=== PATIENT | female | born 1950 | race Caucasian/White ===

== ENCOUNTER → 2016-09-05 | Outpatient (CLI) | payer MEDICARE, OTHER ==
--- NOTE | 2016-09-09 08:55 | MM ---
Reason for exam: screening (asymptomatic). Last mammogram was performed 2 years and 7 months ago. History: Patient is postmenopausal. Family history of breast cancer in aunt. Physical Findings: A clinical breast exam by your physician is recommended on an annual basis and results should be correlated with mammographic findings. MG Screening Mammo w CAD Bilateral CC and MLO view(s) were taken. Prior study comparison: February 28, 2015, mammogram, performed at [facility]. February 15, 2014, mammogram, performed at [facility]. The breast tissue is almost entirely fat. No significant changes when compared with prior studies. ASSESSMENT: Negative, BI-RAD 1 RECOMMENDATION: Routine screening mammogram of both breasts in 1 year.
== END | disposition home or self-care (01) ==
LOC: RADMAMWWP 08-28 14:17
PROVIDERS: ATTEND Family Medicine
DX: Z12.31 Encounter for screening mammogram for malignant neoplasm of breast (principal)

== ENCOUNTER 2017-07-17 09:15 | Inpatient (IN) | payer MEDICARE, OTHER ==
[~2017-07-17 09:15] MED LIST: ACETAMINOPHEN TAB 500 MG TAB PO ONE; MELOXICAM 7.5 MG TAB PO ONE; MORPHINE SULFATE 4 MG/ML SYRINGE IV PRN; ONDANSETRON 4 MG/2 ML VIAL IVP ONE; TRANEXAMIC ACID 1,000 MG in SODIUM CHLORIDE 0.9% 50 ML IVPB ONE; ceFAZolin IN SWFI 2 GM/20 ML SYRINGE IVP ONE; fentaNYL (PF) 50 MCG/ML 2 ML AMP IV PRN
[2017-07-17] MEDS ORDERED: ROPIVACAINE 246.25 MG, EPINEPHrine 0.5 MG, KETOROLAC 30 MG, cloNIDine HCL/PF 80 MCG, WA... MISCELLANE ONE ×5 (09:21)
[2017-07-17 09:48] LABS: Glucose,Whole Blood 121 mg/dL (75-99)
[2017-07-17] MEDS: LACTATED RINGERS 1,000 ML IV SCH ×4 (09:51→22:51)
[2017-07-17] MEDS ORDERED: MIDAZOLAM 2 MG/2 ML VIAL IVP ONE (09:55)
[2017-07-17] MEDS ORDERED: PROPOFOL 10 MG/ML 20 ML VIAL IV ONE (11:10)
[2017-07-17] MEDS ORDERED: MIDAZOLAM 2 MG/2 ML VIAL ONE (11:10)
[2017-07-17] MEDS ORDERED: LIDOCAINE 1% INJ 10MG/ML (20 ML MDV) ONE (11:10)
[2017-07-17] MEDS ORDERED: TRANEXAMIC ACID 1,000 MG/10 ML VIAL ONE (11:10)
[2017-07-17] MEDS ORDERED: MORPHINE SULFATE (PF) 0.3 MG/0.3 ML SYR ONE (11:10)
[2017-07-17] MEDS ORDERED: SODIUM CHLORIDE 0.9% 100 ML BAG ONE (11:10)
[2017-07-17] MEDS ORDERED: diphenhydrAMINE 50 MG/ML 1 ML VIAL ONE (11:10)
[2017-07-17] MEDS ORDERED: fentaNYL (PF) 50 MCG/ML 2 ML AMP ONE (11:10)
[2017-07-17] MEDS ORDERED: diphenhydrAMINE 50 MG/ML 1 ML VIAL IVP PRN ×2 (11:31→15:59)
[2017-07-17] MEDS ORDERED: ONDANSETRON 4 MG/2 ML VIAL IVP PRN ×2 (11:31→13:16)
[2017-07-17] MEDS ORDERED: MORPHINE SULFATE 2 MG/ML SYRINGE IVP PRN (11:31)
[2017-07-17] MEDS ORDERED: NALOXONE 0.4 MG/ML 1 ML VIAL IV PRN ×2 (11:31→15:59)
[2017-07-17] MEDS ORDERED: LACTATED RINGERS 1,000 ML IV ONE (12:10)
[2017-07-17] MEDS ORDERED: ceFAZolin 3,000 MG in SODIUM CHLORIDE 0.9% IRRIGATIO 3,000 ML IRRIGATION ONE (12:11)
[2017-07-17] MEDS ORDERED: DIAZEPAM 5 MG TAB PO PRN (13:16)
[2017-07-17] MEDS ORDERED: BISACODYL 10 MG SUPP RECTAL PRN (13:16)
[2017-07-17] MEDS ORDERED: TEMAZEPAM 15 MG CAP PO PRN (13:16)
[2017-07-17] MEDS ORDERED: MORPHINE SULFATE 4 MG/ML SYRINGE IVP PRN ×3 (13:16)
[2017-07-17] MEDS ORDERED: MAGNESIUM HYDROXIDE 2,400 MG/10 ML CUP PO PRN (13:16)
[2017-07-17] MEDS ORDERED: NA PHOS,M-B/NA PHOS,DI-BA 133 ML ENEMA RECTAL PRN (13:16)
[2017-07-17] MEDS ORDERED: ACETAMINOPHEN TAB 325 MG TAB PO PRN (13:16)
[2017-07-17] MEDS ORDERED: ONDANSETRON 4 MG/2 ML VIAL IVP ONE (13:39)
[2017-07-17 13:43] LABS: Glucose,Whole Blood 141 mg/dL (75-99)
--- NOTE | 2017-07-17 13:57 | XR ---
EXAMINATION TYPE: XR knee limited RT DATE OF EXAM: 07/17/2017 CLINICAL HISTORY: Right knee pain and arthritis status post total knee replacement. TECHNIQUE: Portable AP and crosstable lateral views of the right knee are obtained immediately posto peratively. COMPARISON: None FINDINGS: Metallic hardware from total right knee arthroplasty is seen and appears satisfactory in a lignment and position. There is evidence of recent surgery with diffuse subcutaneous gas and soft ti ssue swelling noted. IMPRESSION: METALLIC HARDWARE FROM TOTAL RIGHT KNEE ARTHROPLASTY IS SATISFACTORY IN ALIGNMENT.
[2017-07-17] MEDS ORDERED: PHENYLEPHRINE 10 MG/ML VIAL IV ONE (14:09)
[2017-07-17] MEDS ORDERED: PROMETHAZINE INJ 25 MG/ML 1 ML VIAL IVPB ONE (14:12)
--- NOTE | 2017-07-17 14:13 | OP ---
OPERATIVE REPORT DATE OF PROCEDURE: 07/17/2017 PREOPERATIVE DIAGNOSIS: Right knee osteoarthrosis. POSTOPERATIVE DIAGNOSIS: Right knee osteoarthrosis. OPERATION: Right total knee arthroplasty. SURGEON: Oscar Edwards MD. CUSTOMER SOLUTIONS SUPERVISOR: Robbi SHARP. ANESTHESIA: Spinal with sedation. ESTIMATED BLOOD LOSS: 100 mL. TOURNIQUET TIME: 45 minutes at 250 mmHg. COMPLICATIONS: None apparent. DRAINS: None. DISPOSITION: Postanesthesia care unit. INDICATIONS: Alana is a very pleasant 66-year-old female with longstanding history of right knee pain. History and physical examination are consistent with advanced right knee osteoarthrosis. She has been through significant nonoperative management up to this point. Further treatment options were discussed and she has decided to go for the right total knee arthroplasty. The risks of procedure were discussed with her in detail. These risks include, but are not limited to risk of infection, nerve damage, bleeding, pain and risk of deep vein thrombosis which could lead to fatal pulmonary embolism. There is also risk of loosening of the implant which could require revision operation. The patient understands the risks. All of her questions were answered to her satisfaction. An appropriate informed consent was obtained. DESCRIPTION OF THE PROCEDURE: Patient identified in the preoperative holding area. Surgical sites marked by both the patient and myself. She was given 2 g of Ancef IV for prophylactic purposes. She was then transferred to the operative suite. She was placed supine on the operative table. A spinal anesthetic was then administered and dosed per the Anesthesia Department without apparent complication. The examination under anesthesia was then performed. The patient was 5 to 10 degrees shy of full extension. She had 95 degrees of flexion and the medial collateral ligament, lateral collateral ligament and posterior cruciate ligaments were stable. Tourniquet was then placed high on the right upper thigh, well-padded in preparation for surgery. Patient's right lower extremity was then prepped and draped in the usual sterile fashion. Standard surgical pause was then undertaken to ensure that we are operating on the correct site and that appropriate preoperative antibiotics have been given. All staff in the room were in agreement and we proceeded. The outlines of the patella were marked with surgical pen. A planned 12 cm vertical incision centered over the patella was marked with a surgical pen. Leg was then exsanguinated with an Esmarch dressing. The knee was then flexed and the tourniquet was inflated to 250 mmHg. The total tourniquet time for the procedure was 45 minutes. The incision was then made with a 10 blade scalpel. Dissection was carried down sharply to the overlying fascia. Great care was taken to minimize the skin flaps. The knee was then exposed using a standard medial parapatellar approach. A small cuff of quadriceps tendon was left for suturing. She was in quite a bit of varus preoperatively. A standard medial release was then made. Superficial medial collateral ligament was dissected off the bone around the posterior aspect of the proximal tibia. The medial meniscus was then excised as well. The lateral meniscus was also released anteriorly. The leg was then externally rotated. The patella was everted and the knee was flexed. The retractors were then placed to protect the collateral ligaments. I then proceeded to remove the infrapatellar fat pad. This was excised sharply tangentially with fibers of the patellar tendon. I then proceeded to remove peripheral osteophytes. This was done with a rongeur. I then proceed with the distal femoral resection. She did have a flexion contracture. A planned 2 mm extra resection was done. The femoral canal was then entered in the midline of the femur approximately 10 mm anterior to the origin of the posterior cruciate ligament. The randolph was then advanced down the center of the femur and placed intramedullary. Based on preoperative radiographs, the angle between the anatomic and mechanical axis of the femur was approximately 4 to 5 degrees. The valgus angle of the distal femoral cutting guide was then set at 4 degrees for the right knee. The distal femoral cutting guide was then advanced over the intramedullary randolph. This was seated firmly against the femur. I then as mentioned planned to take 11 mm off the distal femur. The cutting block was then secured onto the femur with pins. The jig was removed and the distal femoral cut was made through the slot of the block. The pins were then removed and the distal femoral cutting block was removed. The accuracy of the distal femoral cuts was checked with two flat bars. I then proceeded with femoral sizing. The posterior referencing sizing guide was held firmly against the resected distal surface of the femur. The posterior condyles were resting on the posterior plane of the guide. The sizing stylus was then placed on the anterior femur. The size was measured as a size 5. I then assessed for femoral rotation. Plan was for 3 degrees of external rotation. Three degrees of external rotation was placed onto the jig. These holes were then marked. I then confirmed the rotation by 3 separate methods. This was done using the epicondylar axis as well as Whitesides line and posterior referencing. It was deemed that the external rotation was proper. I then went forward with placing the femoral cutting block. This was placed over the previously placed pin holes. The Familia wing was then placed on the anterior slots to ensure that we would not notch the anterior femur with the anterior femoral cut. I then proceed with the anterior femoral cut. This was flush with the anterior cortex of the femur. The posterior cuts were then made followed by the anterior chamfer cut, then the posterior chamfer cut. The cutting block was then removed. Throughout the resection, the collateral ligaments were protected with retractors. I then placed a trial size 5 femur. It fit very nice medial-lateral and fit flush with the distal end of the femur. The drill holes were then made. I then proceed with the tibial cut. I planned for cruciate retaining knee. The guide was then placed and set for varus valgus, then for slope. The height was set for approximate 2 mm resection from the medial tibial plateau which was the lower side. I was happy with the alignment of resection. The cutting block was then pinned to the proximal tibia. The alignment randolph was removed and the proximal tibia was resected with a reciprocating saw. Again this was done with retractors protecting the collateral ligaments as well as the posterior cruciate ligament. I then proceeded to evaluate the flexion and extension gaps. A 10 mm block was placed. The flexion-extension gaps were equal. I then proceeded with resection of the posterior osteophytes. She had mild posterior osteophytes. This was done using a curved osteotome. This resected the posterior osteophytes and posterior capsule stripping was also done off the posterior aspect of the femur at this time. The osteophytes were removed. I then proceeded with resection of the patella. The thickness of patella was measured using the caliper. The thickness was 22 mm. The thickness of the anticipated patellar dome was taken into account. Resection was then performed and confirmed to be equal in 4 quadrants using a caliper. Approximately 14 mm of bone remained after the resection. A 29 x 8 standard patellar trial was then placed. The holes were then drilled and the trial was then placed. I then proceeded with sizing the tibial plate. A size C tibial plate fit very nicely. I then placed the trial femur in the tibial tray and patellar button. A 10 mm trial tibial insert was also placed. I then trialed up to a 12 mm insert. The components fit very nicely. She had full flexion and extension. The extension and flexion gaps were equal and stable to both varus and valgus stress. The patella tracked appropriately. The tibial tray rotation was marked with a Bovie. This was externally rotated properly. I then proceeded with tibial preparation. I first drilled the femoral holes and removed femoral component. The tibial tray was then set for proper external rotation as well as mediolateral placement onto the tibia. It was pinned into place. I then proceeded with punching the keel. I then decided to proceed with cementing of all of our components. The knee was thoroughly irrigated with sterile saline solution via pulse lavage. The lateral geniculate artery was identified and cauterized. All blood was removed from the bone of the tibia, femur and patella with pulse lavage. I then proceeded with cementing. Two packs of antibiotic bone cement were prepared on the back table by the all terrain vehicle technician. I then proceed with cementing the tibia first. The cement was impacted into the keel as well as deeply seated into the bone. A second coat of cement was then placed. The tibia was then impacted into place. Excess cement was removed with Colton's and Joker's. I then proceeded with cementing of the femoral component. The femoral component was also cemented using standard technique. Excess cement was removed. A 12 mm trial insert was then placed into the knee. It was brought into full extension with a constant axial load placed until the cement hardened The patellar component was then cemented. This was held firmly with a compressive device until the cement had dried. When the cement had dried, the knee was taken out of extension. All excess cement was removed from around the prosthesis. I then trialed the knee with a 12 mm insert. The flexion-extension gaps were appropriate. The knee was stable. It came in full extension. I decided to go forward with a 12 mm cross-linked cruciate-retaining tibial insert. Polyethylene was then placed onto the tibial tray and locked into place. The knee was then reduced. The knee was again further irrigated with sterile saline solution with antibiotic added. The tourniquet was then deflated. The total tourniquet time for the procedure was 45 minutes at 250 mmHg. Final components were Ashley Persona size 5, cruciate-retaining femoral component, a size C tibial tray, a 12 mm medial congruent cruciate-retaining polyethylene insert and a 29 x 8 mm patella. I then proceeded with closure. Again, the knee was thoroughly irrigated. The quadriceps tendon and the medial retinaculum were reapproximated with #2 Ethibond suture. The extensor mechanism was then closed with a running #2 Quill suture. Subcutaneous tissues were then closed with 2-0 Vicryl interrupted suture. The skin was closed with a running 3-0 Quill suture. Dermabond was applied to the incision. Sterile compressive dressing was then applied. All sponge, needle counts were deemed correct prior to closure. The patient tolerated the procedure without apparent complication. She was transferred to recovery room in stable condition. MMODL / IJN: [id number] /
[2017-07-17 15:32] VITALS: BMI 36.3
[2017-07-17 17:18] LABS: Glucose,Whole Blood 111 mg/dL (75-99)
[2017-07-17] MEDS: NALBUPHINE 10 MG/ML AMPUL IM PRN (20:16)
[2017-07-17 21:18] LABS: Glucose,Whole Blood 146 mg/dL (75-99)
[2017-07-17] MEDS: ceFAZolin IN SWFI 2 GM/20 ML SYRINGE IVP SCH (22:10)
[2017-07-17] MEDS: ASPIRIN 325 MG TAB PO SCH (22:48)
[2017-07-17] MEDS: SENNOSIDES-DOCUSATE SODIUM 1 EACH TAB PO SCH (22:48)
[2017-07-18] MEDS: INSULIN ASPART 100 UNIT/ML 1 ML 10 ML VIAL SQ SCH ×5 (00:10→21:01)
[2017-07-18 00:22] LABS: Glucose,Whole Blood 142 mg/dL (75-99)
[2017-07-18] MEDS: ceFAZolin IN SWFI 2 GM/20 ML SYRINGE IVP SCH (03:17)
[2017-07-18] MEDS: NALBUPHINE 10 MG/ML AMPUL IM PRN (04:45)
[2017-07-18 06:56] LABS: Glucose,Whole Blood 137 mg/dL (75-99)
[2017-07-18 07:33] LABS: Basophils # (A) 0.1 k/uL (0-0.2); Basophils % (A) 1 %; Eosinophils # (A) 0.2 k/uL (0-0.7); Eosinophils % (A) 2 %; HCT 31.8 % (34.0-46.0); Lymphocytes % (A) 21 %; MCH 27.7 pg (25.0-35.0); MCHC 32.8 g/dL (31.0-37.0); MCV 84.3 fL (80.0-100.0); Mean Platelet Volume 7.4; Monocytes # (A) 0.8 k/uL (0-1.0); Monocytes % (A) 8 %; Neutrophils # (A) 6.3 k/uL (1.3-7.7); Neutrophils % (A) 67 %; Platelet Count 219 k/uL (150-450); RBC 3.78 m/uL (3.80-5.40); RDW 13.1 % (11.5-15.5); WBC 9.5 k/uL (3.8-10.6)
[2017-07-18 07:46] LABS: HGB 10.5 gm/dL (11.4-16.0)
[2017-07-18] MEDS: ASPIRIN 325 MG TAB PO SCH ×2 (08:27→21:01)
[2017-07-18] MEDS: hydrOXYzine PAMOATE 25 MG CAP PO PRN ×2 (08:27→13:20)
[2017-07-18] MEDS: HYDROcodone/APAP 7.5-325MG 1 EACH TAB PO PRN ×4 (08:27→19:42)
--- NOTE | 2017-07-18 09:12 | P.PN ---
Subjective Progress Note Date: 07/18/17 Principal diagnosis: S/P right TKA Patient is seen at bedside this morning. She is postop day #1 from a right total knee arthroplasty. She has pain at the surgical site as expected but denies any new complaints. She denies numbness, tingling or calf pain. Review of systems is negative for fever, chills, chest pain, shortness of breath or other Objective - Vital Signs Vital signs: Vital Signs Temp 97.8 F 07/18/17 08:15 Pulse 77 07/18/17 08:15 Resp 16 07/18/17 08:15 BP 117/58 07/18/17 08:15 Pulse Ox 98 07/18/17 08:15 Intake & Output 07/17/17 07/18/17 07/18/17 18:59 06:59 18:59 Intake Total 1501 1800 Output Total 100 560 Balance 1401 1240 Weight 81.5 kg Intake: IV 1501 Oral 1800 Output: Urine 560 Estimated Blood Loss 100 Other: Voiding Method Bedpan Bedside Commode Toilet Diaper Diaper # Voids 1 - Exam Inspection reveals a benign surgical wound. There is no active bleeding or drainage. Neurovascular status is intact throughout the lower extremity with motor and sensation fully intact. Calf is soft and nontender. 2+ dorsalis pedis pulse and less than 2 second cap refill is present - Constitutional General appearance: Present: no acute distress - Psychiatric Psychiatric: Present: A&O x's 3, appropriate affect, intact judgment & insight - Labs CBC & Chem 7: 07/18/17 06:48 Labs: Abnormal Lab Results - Last 24 Hours (Table) 07/17/17 07/17/17 07/17/17 Range/Units 09:40 13:39 17:13 RBC (3.80-5.40) m/uL Hgb (11.4-16.0) gm/dL Hct (34.0-46.0) % POC Glucose (mg/dL) 121 H 141 H 111 H (75-99) mg/dL 07/17/17 07/17/17 07/18/17 Range/Units 21:00 23:59 06:48 RBC 3.78 L (3.80-5.40) m/uL Hgb 10.5 L D (11.4-16.0) gm/dL Hct 31.8 L (34.0-46.0) % POC Glucose (mg/dL) 146 H 142 H (75-99) mg/dL 07/18/17 Range/Units 06:51 RBC (3.80-5.40) m/uL Hgb (11.4-16.0) gm/dL Hct (34.0-46.0) % POC Glucose (mg/dL) 137 H (75-99) mg/dL Assessment and Plan (1) Osteoarthritis of right knee Narrative/Plan: She will continue with routine postop orthopedic protocol including pain management, wound care, physical therapy, DVT prophylaxis and medical management. Expect that she will transfer to [facility] in the next few days Current Visit: Yes Status: Acute Priority: Medium Code(s): M17.11 - UNILATERAL PRIMARY OSTEOARTHRITIS, RIGHT KNEE SNOMED Code(s): 303853383707165 Time with Patient: Less than 30
--- NOTE | 2017-07-18 09:22 | P.PN ---
Progress Note - Text Progress Note Date: 07/18/17 Postoperative day 1 status post total knee arthroplasty .under spinal anesthesia , and intrathecal morphine given for postoperative analgesia, patient doing well , there is no anesthesia related complications, patient was complaining of severe itching which is managed with NUBAIN IV Patient had no headache, vital signs stable , Assessment and plan= postop day 1 status post total knee arthroplasty,, doing well there is no anesthesia related complication.
[2017-07-18] MEDS ORDERED: ALPRAZolam 0.25 MG TAB PO PRN (11:02)
[2017-07-18] MEDS: LACTATED RINGERS 1,000 ML IV SCH ×2 (11:24→19:43)
[2017-07-18 11:48] LABS: Glucose,Whole Blood 135 mg/dL (75-99)
[2017-07-18 12:12] LABS: Hemoglobin A1C 6.4 % (4.0-6.0)
--- NOTE | 2017-07-18 12:52 | P.CONS ---
History of Present Illness - Reason for Consult Consult date: 07/18/17 Medical management - Chief Complaint Right knee osteoarthritis - History of Present Illness This is a 66-year-old female with past medical history noted below significant for severe osteoarthritis of the right knee that failed conservative management. Patient was admitted to the hospital for elective right total knee arthroplasty. She is postoperative day #1. She tolerated the procedure well. She does not have any concerns. I was asked to see her for medical management. Review of Systems Review of system: 14 points review of systems were obtained and were negative except to what were mentioned in the HPI. Past Medical History Past Medical History: CVA/TIA, Diabetes Mellitus, Deep Vein Thrombosis (DVT), Eye Disorder, Hyperlipidemia, Hypertension, Pneumonia, Respiratory Disorder, Rheumatoid Arthritis (RA) Additional Past Medical History / Comment(s): Possible TIA 2009, NIDDM type II, degenerative arthiritis, cecal polyp, diverticulosis, hemorrhoids, bilateral hand tremors, History of Any Multi-Drug Resistant Organisms: None Reported Past Surgical History: Appendectomy, Heart Catheterization, Hysterectomy Additional Past Surgical History / Comment(s): Recent L cataract surg, colonoscopy with polypectomy-benign. Past Anesthesia/Blood Transfusion Reactions: No Reported Reaction Additional Past Anesthesia/Blood Transfusion Reaction / Comm: Pt has never recieved blood. Past Psychological History: Anxiety Additional Psychological History / Comment(s): Pt resides with spouse. She is independent. She uses no assistive device or home care. She drives. Smoking Status: Never smoker Past Alcohol Use History: None Reported Additional Past Alcohol Use History / Comment(s): Pt states she smoked for about one year as a teenager. Past Drug Use History: None Reported - Past Family History Father Family Medical History: Respiratory Disorder Additional Family Medical History / Comment(s): emphysema Mother Family Medical History: Cancer Additional Family Medical History / Comment(s): Mother had colon cancer. Medications and Allergies Home Medications Medication Instructions Recorded Confirmed Type Simvastatin [Zocor] 20 mg PO HS 03/30/14 07/17/17 History Aspirin EC [Ecotrin Low Dose] 81 mg PO DAILY 01/12/15 07/17/17 History Lisinopril 40 mg PO DAILY 01/12/15 07/17/17 History Multivitamins, Thera [Multivitamin 1 tab PO DAILY 01/12/15 07/17/17 History (formulary)] metFORMIN HCL 1,000 mg PO BID 01/12/15 07/17/17 History Acetaminophen [Tylenol Arthritis] 650 mg PO DAILY 07/08/17 07/17/17 History Atenolol/Chlorthalidone 1 tab PO DAILY 07/08/17 07/17/17 History [Atenolol-Chlorthalidone 50-25] ALPRAZolam [Xanax] 0.25 mg PO BID PRN 07/17/17 07/17/17 History Allergies Allergy/AdvReac Type Severity Reaction Status Date / Time Latex, Natural Rubber Allergy Rash/Hives Verified 07/17/17 13:37 oxytetracycline Allergy Rash/Hives Verified 07/17/17 13:37 [From Terramycin] oxytetracycline HCl Allergy Rash/Hives Verified 07/17/17 13:37 [From Terramycin] Penicillins Allergy Rash/Hives Verified 07/17/17 13:37 streptomycin [Streptomycin] Allergy Rash/Hives Verified 07/17/17 13:37 Physical Exam Vitals: Vital Signs Temp Pulse Resp BP Pulse Ox 07/18/17 08:15 97.8 F 77 16 117/58 98 07/18/17 08:00 16 07/18/17 04:49 18 07/18/17 04:48 96 07/18/17 03:00 18 07/18/17 01:00 18 07/18/17 00:00 17 07/17/17 23:00 98.4 F 74 16 127/77 96 07/17/17 21:00 97.6 F 67 17 102/66 97 07/17/17 18:00 16 07/17/17 17:05 97.6 F 69 18 103/51 96 07/17/17 16:00 16 07/17/17 15:59 100 07/17/17 14:16 80 16 147/69 96 07/17/17 14:00 70 20 146/67 93 L 07/17/17 13:46 65 16 147/67 95 07/17/17 13:18 96.8 F L 76 16 155/65 93 L Intake and Output 07/17/17 07/18/17 07/18/17 22:59 06:59 14:59 Intake Total 120 1680 Output Total 560 Balance 120 1120 Intake: Oral 120 1680 Output: Urine 560 Other: Voiding Method Bedpan Bedside Commode Toilet Diaper Diaper # Voids 1 General: The patient is awake and alert, in no distress Eye: there is normal conjunctiva bilaterally. Neck: The neck is supple, there is no JVD. Cardiovascular: Normal S1-S2, no S3-S4, no murmurs. Respiratory: Lungs clear to auscultation bilaterally Gastrointestinal: Abdomen is soft, nontender Musculoskeletal: There is no pedal edema. Neurological:. Speech is normal. Skin: Skin is warm and dry Results CBC & Chem 7: 07/18/17 06:48 Labs: Abnormal Lab Results - Last 24 Hours (Table) 07/17/17 07/17/17 07/17/17 Range/Units 13:39 17:13 21:00 RBC (3.80-5.40) m/uL Hgb (11.4-16.0) gm/dL Hct (34.0-46.0) % POC Glucose (mg/dL) 141 H 111 H 146 H (75-99) mg/dL 07/17/17 07/18/17 07/18/17 Range/Units 23:59 06:48 06:51 RBC 3.78 L (3.80-5.40) m/uL Hgb 10.5 L D (11.4-16.0) gm/dL Hct 31.8 L (34.0-46.0) % POC Glucose (mg/dL) 142 H 137 H (75-99) mg/dL 07/18/17 Range/Units 11:40 RBC (3.80-5.40) m/uL Hgb (11.4-16.0) gm/dL Hct (34.0-46.0) % POC Glucose (mg/dL) 135 H (75-99) mg/dL Assessment and Plan Assessment: 1. Status post total right knee arthroplasty. Continue postoperative care. Orthopedic following closely. 2. DVT prophylaxis per orthopedic protocol 3. Essential hypertension: Blood pressure well-controlled 4. Type 2 diabetes, maintained on metformin. Sliding scale insulin as needed. 5. Mixed hyperlipidemia Today, I reviewed her medication list and lab work results. Continue current regimen. Thank you very much for the consultation. I will continue to follow up on the patient closely.
[2017-07-18] MEDS: ATENOLOL 50 MG TAB PO SCH (13:09)
[2017-07-18] MEDS: LISINOPRIL 20 MG TAB PO SCH (13:10)
[2017-07-18] MEDS: CHLORTHALIDONE 25 MG TAB PO SCH (13:10)
[2017-07-18] MEDS: MULTIVITAMINS, THERA 1 EACH TAB PO SCH (13:10)
--- NOTE | 2017-07-18 13:58 | XR ---
EXAMINATION TYPE: XR chest 1V portable DATE OF EXAM: 07/18/2017 COMPARISON: 01/12/2015 INDICATION: Rehabilitation placement TECHNIQUE: Single frontal view of the chest is obtained. FINDINGS: The heart size is normal. The pulmonary vasculature is normal. The lungs are clear. IMPRESSION: 1. No acute pulmonary process.
[2017-07-18] MEDS ORDERED: HYDROmorphone 2 MG TAB PO PRN ×3 (14:43→14:44)
[2017-07-18 17:18] LABS: Glucose,Whole Blood 113 mg/dL (75-99)
[2017-07-18 20:19] LABS: Glucose,Whole Blood 181 mg/dL (75-99)
[2017-07-18] MEDS: metFORMIN 500 MG TAB PO SCH (21:01)
[2017-07-18] MEDS: SENNOSIDES-DOCUSATE SODIUM 1 EACH TAB PO SCH (21:01)
[2017-07-18] MEDS: ATORVASTATIN 10 MG TAB PO SCH (21:01)
[2017-07-18 21:02] LABS: Glucose,Whole Blood 166 mg/dL (75-99)
[2017-07-19] MEDS: hydrOXYzine PAMOATE 25 MG CAP PO PRN ×3 (05:14→22:37)
[2017-07-19] MEDS: HYDROcodone/APAP 7.5-325MG 1 EACH TAB PO PRN ×4 (05:14→22:38)
[2017-07-19] MEDS: LACTATED RINGERS 1,000 ML IV SCH ×2 (05:16→12:17)
[2017-07-19 07:22] LABS: Glucose,Whole Blood 146 mg/dL (75-99)
[2017-07-19] MEDS: INSULIN ASPART 100 UNIT/ML 1 ML 10 ML VIAL SQ SCH ×4 (08:06→20:19)
[2017-07-19] MEDS: ASPIRIN 325 MG TAB PO SCH ×2 (08:07→20:28)
[2017-07-19] MEDS: CHLORTHALIDONE 25 MG TAB PO SCH (08:07)
[2017-07-19] MEDS: metFORMIN 500 MG TAB PO SCH ×2 (08:07→17:44)
[2017-07-19] MEDS: ATENOLOL 50 MG TAB PO SCH (08:07)
[2017-07-19] MEDS: LISINOPRIL 20 MG TAB PO SCH (09:40)
--- NOTE | 2017-07-19 10:18 | P.PN ---
Subjective Progress Note Date: 07/19/17 Principal diagnosis: Primary osteoarthritis right knee. Status post total right knee arthroplasty. This is a 66-year-old female who is status post total right knee arthroplasty. She is doing well from an orthopedic standpoint. She has no new complaints or concerns today. Vital signs are stable. Objective - Vital Signs Vital signs: Vital Signs Temp 97.7 F 07/19/17 07:00 Pulse 71 07/19/17 09:27 Resp 16 07/19/17 07:00 BP 120/74 07/19/17 09:27 Pulse Ox 98 07/19/17 07:00 Intake & Output 07/18/17 07/19/17 07/19/17 18:59 06:59 18:59 Intake Total 480 240 Balance 480 240 Intake: Intake, IV Titration 0 Amount Lactated Ringers 1,000 ml 0 @ 100 mls/hr IV .Q10H RONNIE Rx#:[id number] Oral 480 240 Other: Voiding Method Toilet Diaper # Voids 2 - Exam This is a 66-year-old female in no acute distress. She is alert and oriented 3. Exam of the right knee reveals no erythema or ecchymosis. Her Dermabond glue is intact. There is no drainage on the dressing and no active drainage at this time. She has full foot and ankle motion without difficulty or pain. Neurovascular status to the lower extremity is intact. - Labs CBC & Chem 7: 07/18/17 06:48 Labs: Abnormal Lab Results - Last 24 Hours (Table) 07/18/17 07/18/17 07/18/17 Range/Units 06:48 11:40 17:14 POC Glucose (mg/dL) 135 H 113 H (75-99) mg/dL Hemoglobin A1c 6.4 H (4.0-6.0) % 07/18/17 07/18/17 07/19/17 Range/Units 20:17 20:50 07:19 POC Glucose (mg/dL) 181 H 166 H 146 H (75-99) mg/dL Hemoglobin A1c (4.0-6.0) % Assessment and Plan (1) Status post total right knee replacement Current Visit: Yes Status: Acute Code(s): Z96.651 - PRESENCE OF RIGHT ARTIFICIAL KNEE JOINT SNOMED Code(s): 4830516446082 (2) Osteoarthritis of right knee Current Visit: Yes Status: Acute Priority: Medium Code(s): M17.11 - UNILATERAL PRIMARY OSTEOARTHRITIS, RIGHT KNEE SNOMED Code(s): 881548048328253 Plan: The clinical findings are discussed the patient. She is to continue with physical therapy as directed. We're planning discharge to inpatient rehab Friday.
[2017-07-19] MEDS: MULTIVITAMINS, THERA 1 EACH TAB PO SCH (11:14)
[2017-07-19] MEDS: traMADol 50 MG TAB PO PRN ×2 (11:14→20:20)
[2017-07-19 11:37] LABS: Glucose,Whole Blood 131 mg/dL (75-99)
--- NOTE | 2017-07-19 14:02 | P.PN ---
Subjective Patient is doing well today. No events overnight. Objective - Vital Signs Vital signs: Vital Signs Temp 97.7 F 07/19/17 07:00 Pulse 71 07/19/17 09:27 Resp 16 07/19/17 07:00 BP 120/74 07/19/17 09:27 Pulse Ox 98 07/19/17 07:00 Intake & Output 07/18/17 07/19/17 07/19/17 18:59 06:59 18:59 Intake Total 480 240 Balance 480 240 Intake: Intake, IV Titration 0 Amount Lactated Ringers 1,000 ml 0 @ 100 mls/hr IV .Q10H RONNIE Rx#:[id number] Oral 480 240 Other: Voiding Method Toilet Toilet Diaper # Voids 2 - Exam General: The patient is awake and alert, in no distress Eye: there is normal conjunctiva bilaterally. Neck: The neck is supple, there is no JVD. Cardiovascular: Normal S1-S2, no S3-S4, no murmurs. Respiratory: Lungs clear to auscultation bilaterally Gastrointestinal: Abdomen is soft, nontender Musculoskeletal: There is no pedal edema. Neurological:. Speech is normal. Skin: Skin is warm and dry - Labs CBC & Chem 7: 07/18/17 06:48 Labs: Abnormal Lab Results - Last 24 Hours (Table) 07/18/17 07/18/17 07/18/17 Range/Units 06:48 17:14 20:17 POC Glucose (mg/dL) 113 H 181 H (75-99) mg/dL Hemoglobin A1c 6.4 H (4.0-6.0) % 07/18/17 07/19/17 07/19/17 Range/Units 20:50 07:19 11:34 POC Glucose (mg/dL) 166 H 146 H 131 H (75-99) mg/dL Hemoglobin A1c (4.0-6.0) % Assessment and Plan Assessment: 1. Status post total right knee arthroplasty. Continue postoperative care. Orthopedic following closely. 2. DVT prophylaxis per orthopedic protocol 3. Essential hypertension: Blood pressure well-controlled 4. Type 2 diabetes, maintained on metformin. Sliding scale insulin as needed. 5. Mixed hyperlipidemia Today, I reviewed her medication list and lab work results. Continue current regimen. Thank you very much for the consultation. I will continue to follow up on the patient closely.
[2017-07-19 17:41] LABS: Glucose,Whole Blood 128 mg/dL (75-99)
[2017-07-19] MEDS: ATORVASTATIN 10 MG TAB PO SCH (20:28)
[2017-07-19] MEDS: SENNOSIDES-DOCUSATE SODIUM 1 EACH TAB PO SCH (20:28)
[2017-07-19 20:41] LABS: Glucose,Whole Blood 142 mg/dL (75-99)
[2017-07-20] MEDS: LACTATED RINGERS 1,000 ML IV SCH ×3 (03:49→21:42)
[2017-07-20] MEDS: HYDROcodone/APAP 7.5-325MG 1 EACH TAB PO PRN ×4 (04:43→23:31)
[2017-07-20 07:21] LABS: Basophils % (A) 0 %; Eosinophils # (A) 0.3 k/uL (0-0.7); Eosinophils % (A) 4 %; HCT 27.8 % (34.0-46.0); Lymphocytes # (A) 1.6 k/uL (1.0-4.8); Lymphocytes % (A) 21 %; MCHC 32.3 g/dL (31.0-37.0); MCV 83.4 fL (80.0-100.0); Mean Platelet Volume 7.9; Monocytes # (A) 0.6 k/uL (0-1.0); Monocytes % (A) 7 %; Neutrophils # (A) 4.9 k/uL (1.3-7.7); Neutrophils % (A) 66 %; Platelet Count 192 k/uL (150-450); RBC 3.33 m/uL (3.80-5.40); RDW 13.5 % (11.5-15.5); WBC 7.5 k/uL (3.8-10.6)
[2017-07-20 07:34] LABS: Glucose,Whole Blood 123 mg/dL (75-99)
[2017-07-20] MEDS: ATENOLOL 50 MG TAB PO SCH (09:27)
[2017-07-20] MEDS: metFORMIN 500 MG TAB PO SCH ×2 (09:27→17:13)
--- NOTE | 2017-07-20 10:04 | P.PN ---
Subjective Progress Note Date: 07/20/17 Principal diagnosis: Primary osteoarthritis right knee. Status post total right knee arthroplasty. This is a 66-year-old female who is status post total right knee arthroplasty. She is doing well from an orthopedic standpoint. She has no new complaints or concerns today. Vital signs are stable. Objective - Vital Signs Vital signs: Vital Signs Temp 97.6 F 07/20/17 07:00 Pulse 77 07/20/17 09:24 Resp 15 07/20/17 07:00 BP 113/59 07/20/17 09:24 Pulse Ox 96 07/20/17 07:00 Intake & Output 07/19/17 07/20/17 07/20/17 18:59 06:59 18:59 Intake Total 980 Balance 980 Intake: Oral 980 Other: Voiding Method Toilet Toilet # Voids 2 1 # Bowel Movements 1 2 - Exam This is a 66-year-old female in no acute distress. She is alert and oriented 3. Exam of the right knee reveals no erythema or ecchymosis. Her Dermabond glue is intact. There is scant drainage on the dressing and no active drainage at this time. She has full foot and ankle motion without difficulty or pain. Neurovascular status to the lower extremity is intact. - Labs CBC & Chem 7: 07/20/17 06:35 Labs: Abnormal Lab Results - Last 24 Hours (Table) 07/19/17 07/19/17 07/19/17 Range/Units 11:34 17:40 20:11 RBC (3.80-5.40) m/uL Hgb (11.4-16.0) gm/dL Hct (34.0-46.0) % POC Glucose (mg/dL) 131 H 128 H 142 H (75-99) mg/dL 07/20/17 07/20/17 Range/Units 06:35 07:33 RBC 3.33 L (3.80-5.40) m/uL Hgb 9.0 L D (11.4-16.0) gm/dL Hct 27.8 L (34.0-46.0) % POC Glucose (mg/dL) 123 H (75-99) mg/dL Assessment and Plan (1) Status post total right knee replacement Current Visit: Yes Status: Acute Code(s): Z96.651 - PRESENCE OF RIGHT ARTIFICIAL KNEE JOINT SNOMED Code(s): 7798542135273 (2) Osteoarthritis of right knee Current Visit: Yes Status: Acute Priority: Medium Code(s): M17.11 - UNILATERAL PRIMARY OSTEOARTHRITIS, RIGHT KNEE SNOMED Code(s): 710923899459325 Plan: The clinical findings are discussed the patient. She is to continue with physical therapy as directed. We're planning discharge to inpatient rehab Friday.
[2017-07-20 11:07] LABS: Glucose,Whole Blood 134 mg/dL (75-99)
[2017-07-20] MEDS: CHLORTHALIDONE 25 MG TAB PO SCH (11:10)
[2017-07-20] MEDS: ASPIRIN 325 MG TAB PO SCH ×2 (11:10→19:56)
[2017-07-20] MEDS: LISINOPRIL 20 MG TAB PO SCH (11:10)
[2017-07-20] MEDS: MULTIVITAMINS, THERA 1 EACH TAB PO SCH (12:57)
[2017-07-20] MEDS: INSULIN ASPART 100 UNIT/ML 1 ML 10 ML VIAL SQ SCH ×3 (12:57→20:01)
--- NOTE | 2017-07-20 13:59 | P.PN ---
Subjective No issues overnight Objective - Vital Signs Vital signs: Vital Signs Temp 97.6 F 07/20/17 07:00 Pulse 75 07/20/17 11:25 Resp 15 07/20/17 07:00 BP 116/61 07/20/17 11:25 Pulse Ox 96 07/20/17 07:00 Intake & Output 07/19/17 07/20/17 07/20/17 18:59 06:59 18:59 Intake Total 980 Balance 980 Intake: Oral 980 Other: Voiding Method Toilet Toilet # Voids 2 1 # Bowel Movements 1 2 - Labs CBC & Chem 7: 07/20/17 06:35 Labs: Abnormal Lab Results - Last 24 Hours (Table) 07/19/17 07/19/17 07/20/17 Range/Units 17:40 20:11 06:35 RBC 3.33 L (3.80-5.40) m/uL Hgb 9.0 L D (11.4-16.0) gm/dL Hct 27.8 L (34.0-46.0) % POC Glucose (mg/dL) 128 H 142 H (75-99) mg/dL 07/20/17 07/20/17 Range/Units 07:33 11:05 RBC (3.80-5.40) m/uL Hgb (11.4-16.0) gm/dL Hct (34.0-46.0) % POC Glucose (mg/dL) 123 H 134 H (75-99) mg/dL Assessment and Plan Assessment: 1. Status post total right knee arthroplasty. Continue postoperative care. Orthopedic following closely. 2. DVT prophylaxis per orthopedic protocol 3. Essential hypertension: Blood pressure well-controlled 4. Type 2 diabetes, maintained on metformin. Sliding scale insulin as needed. 5. Mixed hyperlipidemia Awaiting ECF placement.
[2017-07-20] MEDS: traMADol 50 MG TAB PO PRN ×2 (14:49→20:01)
[2017-07-20 17:13] LABS: Glucose,Whole Blood 115 mg/dL (75-99)
[2017-07-20] MEDS: SENNOSIDES-DOCUSATE SODIUM 1 EACH TAB PO SCH (19:55)
[2017-07-20] MEDS: ATORVASTATIN 10 MG TAB PO SCH (19:56)
[2017-07-20 20:00] LABS: Glucose,Whole Blood 137 mg/dL (75-99)
[2017-07-21 01:39] VITALS: RESP 16
[2017-07-21 06:58] LABS: Glucose,Whole Blood 124 mg/dL (75-99)
[2017-07-21] MEDS: INSULIN ASPART 100 UNIT/ML 1 ML 10 ML VIAL SQ SCH ×2 (07:51→12:56)
[2017-07-21] MEDS: LISINOPRIL 20 MG TAB PO SCH (07:58)
[2017-07-21] MEDS: HYDROcodone/APAP 7.5-325MG 1 EACH TAB PO PRN ×2 (07:58→12:53)
[2017-07-21] MEDS: ASPIRIN 325 MG TAB PO SCH (07:59)
[2017-07-21] MEDS: metFORMIN 500 MG TAB PO SCH (07:59)
[2017-07-21] MEDS: ATENOLOL 50 MG TAB PO SCH (07:59)
[2017-07-21] MEDS: CHLORTHALIDONE 25 MG TAB PO SCH (08:00)
[2017-07-21] MEDS: LACTATED RINGERS 1,000 ML IV SCH (08:39)
[2017-07-21 09:13] VITALS: BP 132/79; PULSE 78; TEMP 98.5
--- NOTE | 2017-07-21 11:49 | P.DS ---
Providers Date of admission: 07/17/17 09:15 Expected date of discharge: 07/21/17 Attending physician: Oscar Edwards Consults: 07/17/17 13:16 Consult Physician Routine Consulting Provider: Ade Huston Consult Reason/Comments: post op medical management Do you want consulting provider notified?: Yes 07/17/17 14:11 Consult Physician Routine Consulting Provider: Winnie Martinez Consult Reason/Comments: medical management Do you want consulting provider notified?: Yes Primary care physician: Ade Huston - Discharge Diagnosis(es) (1) Osteoarthritis of right knee Patient was admitted to the OR on 07/17/2017 to undergo right total Knee Arthroplasty. She had failed conservative measures as an outpatient and desired to proceed with elective surgery after given informed consent She underwent the above procedure which she tolerated well without complication. Postoperative hospital course has remained without complication. On day of discharge she is afebrile, vital signs stable, labs within acceptable ranges, tolerating by mouth meds and diet, voiding without difficulty, positive flatus, denies abdominal pain or calf pain, pain is controlled on oral pain medication and has no new complaints. Wound is benign, neurovascular status is intact, calf is soft and nontender, abdomen soft and nontender. Review of systems is negative for numbness, tingling, fever, chills, chest pain, shortness breath, nausea, vomiting, dizziness, headaches, slurred speech or other. Current Visit: Yes Status: Acute Priority: Medium Procedures: Right TKA Patient Condition at Discharge: Good Plan - Discharge Summary Discharge Rx Participant: Yes New Discharge Prescriptions: New Aspirin 325 mg PO BID tab Aspirin 325 mg PO BID #60 tab Docusate [Colace] 100 mg PO BID #60 capsule HYDROcodone/APAP 7.5-325MG [[employer] 7.5-325] 1 - 2 each PO Q6HR PRN #90 tab PRN Reason: Pain Continue Simvastatin [Zocor] 20 mg PO HS Multivitamins, Thera [Multivitamin (formulary)] 1 tab PO DAILY Lisinopril 40 mg PO DAILY metFORMIN HCL 1,000 mg PO BID Atenolol/Chlorthalidone [Atenolol-Chlorthalidone 50-25] 1 tab PO DAILY Acetaminophen [Tylenol Arthritis] 650 mg PO DAILY ALPRAZolam [Xanax] 0.25 mg PO BID PRN PRN Reason: Moderate Anxiety Discontinued Aspirin EC [Ecotrin Low Dose] 81 mg PO DAILY Discharge Medication List Simvastatin [Zocor] 20 mg PO HS 03/30/14 [History] Lisinopril 40 mg PO DAILY 01/12/15 [History] Multivitamins, Thera [Multivitamin (formulary)] 1 tab PO DAILY 01/12/15 [History ] metFORMIN HCL 1,000 mg PO BID 01/12/15 [History] Acetaminophen [Tylenol Arthritis] 650 mg PO DAILY 07/08/17 [History] Atenolol/Chlorthalidone [Atenolol-Chlorthalidone 50-25] 1 tab PO DAILY 07/08/17 [History] ALPRAZolam [Xanax] 0.25 mg PO BID PRN 07/17/17 [History] Aspirin 325 mg PO BID tab 07/21/17 [Rx] Aspirin 325 mg PO BID #60 tab 07/21/17 [Rx] Docusate [Colace] 100 mg PO BID #60 capsule 07/21/17 [Rx] HYDROcodone/APAP 7.5-325MG [[employer] 7.5-325] 1 - 2 each PO Q6HR PRN #90 tab [Rx] Follow up Appointment(s)/Referral(s): Ade Huston MD [Primary Care Provider] - 07/24/17 11:30 am Oscar Edwards MD [STAFF PHYSICIAN] - 07/30/17 10:15 am Patient Instructions/Handouts: Knee Replacement (DC) Discharge Disposition: TRANSFER TO SNF/ECF
[2017-07-21 12:02] LABS: Glucose,Whole Blood 128 mg/dL (75-99)
--- NOTE | 2017-07-21 12:30 | P.PN ---
Subjective Patient will be discharged to ECF today Objective - Vital Signs Vital signs: Vital Signs Temp 98.5 F 07/21/17 07:00 Pulse 78 07/21/17 07:00 Resp 16 07/21/17 07:00 BP 132/79 07/21/17 07:00 Pulse Ox 95 07/21/17 07:00 Intake & Output 07/20/17 07/21/17 07/21/17 18:59 06:59 18:59 Intake Total 590 Balance 590 Intake: Oral 590 Other: Voiding Method Toilet # Voids 2 3 - Exam General: The patient is awake and alert, in no distress Eye: there is normal conjunctiva bilaterally. Neck: The neck is supple, there is no JVD. Cardiovascular: Normal S1-S2, no S3-S4, no murmurs. Respiratory: Lungs clear to auscultation bilaterally Gastrointestinal: Abdomen is soft, nontender Musculoskeletal: There is no pedal edema. Neurological:. Speech is normal. Skin: Skin is warm and dry - Labs CBC & Chem 7: 07/20/17 06:35 Labs: Abnormal Lab Results - Last 24 Hours (Table) 07/20/17 07/20/17 07/21/17 Range/Units 16:53 19:58 06:57 POC Glucose (mg/dL) 115 H 137 H 124 H (75-99) mg/dL 07/21/17 Range/Units 11:41 POC Glucose (mg/dL) 128 H (75-99) mg/dL Assessment and Plan Assessment: 1. Status post total right knee arthroplasty. Continue postoperative care. Orthopedic following closely. 2. DVT prophylaxis per orthopedic protocol with full dose aspirin twice daily 3. Essential hypertension: Blood pressure well-controlled 4. Type 2 diabetes, maintained on metformin. Sliding scale insulin as needed. 5. Mixed hyperlipidemia Awaiting ECF placement today. I would continue to follow up on her closely.
[2017-07-21] MEDS: MULTIVITAMINS, THERA 1 EACH TAB PO SCH (12:52)
== END 2017-07-21 14:00 | DRG 470 ==
LOC: 2ORMAIN 09:15 → 3SUR 13:13
PROVIDERS: ADMIT Orthopaedic Surgery Sports Medicine; ATTEND Orthopaedic Surgery Sports Medicine
PROC: 0SRC0J9 Replacement of Right Knee Joint with Synthetic Substitute, Cemented, Open Approach (ICD-10-PCS; principal; 2017-07-17 11:00)
DX: M17.11 Unilateral primary osteoarthritis, right knee (principal); M06.9 Rheumatoid arthritis, unspecified; E11.9 Type 2 diabetes mellitus without complications; E78.2 Mixed hyperlipidemia; I10 Essential (primary) hypertension; Z79.84 Long term (current) use of oral hypoglycemic drugs; Z79.899 Other long term (current) drug therapy; Z80.0 Family history of malignant neoplasm of digestive organs; Z82.5 Family history of asthma and other chronic lower respiratory diseases; Z86.73 Personal history of transient ischemic attack (TIA), and cerebral infarction without residual deficits; Z90.710 Acquired absence of both cervix and uterus; Z88.0 Allergy status to penicillin; Z88.1 Allergy status to other antibiotic agents; Z91.040 Latex allergy status; Z79.82 Long term (current) use of aspirin; Z87.891 Personal history of nicotine dependence
CPT/HCPCS: 71045; 83036; 85025; 88300

== ENCOUNTER 2017-10-02 10:04 | Inpatient (IN) | payer MEDICARE, OTHER ==
[2017-10-02] MEDS ORDERED: PANTOPRAZOLE 40 MG/10 ML VIAL IVP STA (10:50)
[2017-10-02] MEDS ORDERED: SODIUM CHLORIDE 0.9% 1,000 ML IV STA ×2 (10:50)
[2017-10-02] MEDS ORDERED: DICYCLOMINE 10 MG/ML 2 ML AMP IM STA (10:50)
[2017-10-02] MEDS ORDERED: ONDANSETRON 4 MG/2 ML VIAL IVP STA (10:50)
[2017-10-02] MEDS ORDERED: LORazepam 2 MG/ML INJ IV STA ×2 (11:12→12:45)
[2017-10-02] MEDS ORDERED: cloNIDine 0.3 MG/24HR PATCH 1 PATCH PATCH TRANSDERM SCH (11:15)
[2017-10-02 11:29] LABS: Appearance,Urine Clear (Clear); Bilirubin,Urine Negative (Negative); Blood,Urine Negative (Negative); Color,Urine Light Yellow; Glucose,Urine (UA) Negative (Negative); Ketones,Urine Negative (Negative); Leukocyte Esterase,Urine Negative (Negative); Nitrite,Urine Negative (Negative); PH, Urine 7.5 (5.0-8.0); Protein,Urine Negative (Negative); Specific Gravity,Urine 1.006 (1.001-1.035); Urobilinogen,Urine <2.0 mg/dL (<2.0)
[2017-10-02 11:31] LABS: Basophils % (A) 0 %; Eosinophils # (A) 0.3 k/uL (0-0.7); Eosinophils % (A) 3 %; HCT 41.7 % (34.0-46.0); HGB 14.4 gm/dL (11.4-16.0); Lymphocytes # (A) 2.5 k/uL (1.0-4.8); Lymphocytes % (A) 25 %; MCH 27.7 pg (25.0-35.0); MCHC 34.6 g/dL (31.0-37.0); MCV 79.9 fL (80.0-100.0); Mean Platelet Volume 6.6; Monocytes # (A) 0.6 k/uL (0-1.0); Monocytes % (A) 6 %; Neutrophils # (A) 6.5 k/uL (1.3-7.7); Neutrophils % (A) 65 %; Platelet Count 384 k/uL (150-450); RBC 5.22 m/uL (3.80-5.40); RDW 13.4 % (11.5-15.5); WBC 10.1 k/uL (3.8-10.6)
[2017-10-02 11:37] LABS: Albumin 4.7 g/dL (3.5-5.0); Chloride 90 mmol/L (98-107); Glucose 121 mg/dL (74-99); Total Protein 7.6 g/dL (6.3-8.2)
[2017-10-02 11:38] LABS: ALT 32 U/L (9-52); AST 25 U/L (14-36); Alkaline Phosphatase 61 U/L (38-126); Anion Gap 17 mmol/L; Blood Urea Nitrogen 9 mg/dL (7-17); Calcium 10.4 mg/dL (8.4-10.2); Carbon Dioxide 25 mmol/L (22-30); Magnesium 1.6 mg/dL (1.6-2.3); Phosphorus 3.7 mg/dL (2.5-4.5); Potassium 3.9 mmol/L (3.5-5.1); Sodium 132 mmol/L (137-145); Total Bilirubin 0.3 mg/dL (0.2-1.3)
[2017-10-02 11:54] LABS: Creatine Kinase 29 U/L (30-135)
--- NOTE | 2017-10-02 12:00 | ED ---
General Adult HPI - General Chief complaint: Nausea/Vomiting/Diarrhea Stated complaint: NVD Source: patient, RN notes reviewed, old records reviewed Mode of arrival: ambulatory Limitations: no limitations - History of Present Illness Initial comments: This is a 66-year-old female the ER for evaluation. Patient presented for evaluation regarding nausea vomiting. Patient symptoms 3 weeks. Patient has remote medical history of being on narcotics secondary to knee surgery. Patient states she's had at that time getting off narcotic medication. She's tried postop and cold turkey and weaning off slowly. Patient states she had one time she was taking 5 pills a day. She states she cannot stop shaking and trembling is nauseous and dry heaving with occasional vomiting. No appetite. Otherwise patient denies any specific pain no abdominal pain no chest pain or shortness of breath. Denies fever. - Related Data Home Medications Medication Instructions Recorded Confirmed Simvastatin [Zocor] 20 mg PO HS 03/30/14 10/02/17 Lisinopril 40 mg PO DAILY 01/12/15 10/02/17 Multivitamins, Thera [Multivitamin 1 tab PO DAILY 01/12/15 10/02/17 (formulary)] metFORMIN HCL 1,000 mg PO BID 01/12/15 10/02/17 Atenolol/Chlorthalidone 1 tab PO DAILY 07/08/17 10/02/17 [Atenolol-Chlorthalidone 50-25] ALPRAZolam [Xanax] 0.25 mg PO BID PRN 07/17/17 10/02/17 Acetaminophen Tab [Tylenol Tab] 500 mg PO DAILY PRN 10/02/17 10/02/17 Acetaminophen/Diphenhydramine 2 tab PO HS 10/02/17 10/02/17 [Tylenol PM Extra Strength] Aspirin EC [Ecotrin Low Dose] 81 mg PO W/SUPPER 10/02/17 10/02/17 Cetirizine HCl [Zyrtec] 10 mg PO DAILY 10/02/17 10/02/17 Allergies Allergy/AdvReac Type Severity Reaction Status Date / Time Latex, Natural Rubber Allergy Rash/Hives Verified 10/02/17 10:29 oxytetracycline Allergy Rash/Hives Verified 10/02/17 10:29 [From Terramycin] oxytetracycline HCl Allergy Rash/Hives Verified 10/02/17 10:29 [From Terramycin] Penicillins Allergy Rash/Hives Verified 10/02/17 10:29 streptomycin [Streptomycin] Allergy Rash/Hives Verified 10/02/17 10:29 Review of Systems ROS Statement: Those systems with pertinent positive or pertinent negative responses have been documented in the HPI. ROS Other: All systems not noted in ROS Statement are negative. Past Medical History Past Medical History: CVA/TIA, Diabetes Mellitus, Deep Vein Thrombosis (DVT), Eye Disorder, Hyperlipidemia, Hypertension, Pneumonia, Respiratory Disorder, Rheumatoid Arthritis (RA) Additional Past Medical History / Comment(s): Possible TIA 2008, NIDDM type II, degenerative arthiritis, cecal polyp, diverticulosis, hemorrhoids, bilateral hand tremors, History of Any Multi-Drug Resistant Organisms: None Reported Past Surgical History: Appendectomy, Heart Catheterization, Hysterectomy, Joint Replacement, Orthopedic Surgery Additional Past Surgical History / Comment(s): Recent L cataract surg, colonoscopy with polypectomy-benign. Past Anesthesia/Blood Transfusion Reactions: No Reported Reaction Additional Past Anesthesia/Blood Transfusion Reaction / Comment(s): Pt has never recieved blood. Past Psychological History: Anxiety Smoking Status: Never smoker Past Alcohol Use History: None Reported Past Drug Use History: None Reported - Past Family History Father Family Medical History: Respiratory Disorder Additional Family Medical History / Comment(s): emphysema Mother Family Medical History: Cancer Additional Family Medical History / Comment(s): Mother had colon cancer. General Exam Limitations: no limitations General appearance: alert, in no apparent distress, anxious Head exam: Present: atraumatic, normocephalic, normal inspection Eye exam: Present: normal appearance, PERRL, EOMI. Absent: scleral icterus, conjunctival injection, periorbital swelling ENT exam: Present: normal exam, mucous membranes moist Neck exam: Present: normal inspection. Absent: tenderness, meningismus, lymphadenopathy Respiratory exam: Present: normal lung sounds bilaterally. Absent: respiratory distress, wheezes, rales, rhonchi, stridor Cardiovascular Exam: Present: regular rate, normal rhythm, normal heart sounds. Absent: systolic murmur, diastolic murmur, rubs, gallop, clicks GI/Abdominal exam: Present: soft, normal bowel sounds. Absent: distended, tenderness, guarding, rebound, rigid Extremities exam: Present: normal inspection, full ROM, normal capillary refill. Absent: tenderness, pedal edema, joint swelling, calf tenderness Back exam: Present: normal inspection Neurological exam: Present: alert, oriented X3, CN II-XII intact Psychiatric exam: Present: normal affect, normal mood Skin exam: Present: warm, dry, intact, normal color. Absent: rash Course Vital Signs 10/02/17 10:15 Temperature 98.1 F Pulse Rate 77 Respiratory 20 Rate Blood Pressure 194/90 O2 Sat by Pulse 99 Oximetry - Reevaluation(s) Reevaluation #1: 10/02/17 12:47 Patient currently not feeling any better EKG Findings - EKG Comments: EKG Findings:: EKG shows normal sinus rhythm rate of 69, ME 1:30, QRS 82, QTc 428 Medical Decision Making - Medical Decision Making 66 female with intractable nausea vomiting. Patient is still vomiting despite medication fluid resuscitation here. She does show clinical dehydration will admit for fluid continued fluid resuscitation and symptom therapy - Lab Data Result diagrams: 10/02/17 11:05 10/02/17 11:05 Lab Results 10/02/17 10/02/17 10/02/17 Range/Units 11:05 11:05 11:05 WBC 10.1 (3.8-10.6) k/uL RBC 5.22 (3.80-5.40) m/uL Hgb 14.4 (11.4-16.0) gm/dL Hct 41.7 (34.0-46.0) % MCV 79.9 L (80.0-100.0) fL MCH 27.7 (25.0-35.0) pg MCHC 34.6 (31.0-37.0) g/dL RDW 13.4 (11.5-15.5) % Plt Count 384 (150-450) k/uL Neutrophils % 65 % Lymphocytes % 25 % Monocytes % 6 % Eosinophils % 3 % Basophils % 0 % Neutrophils # 6.5 (1.3-7.7) k/uL Lymphocytes # 2.5 (1.0-4.8) k/uL Monocytes # 0.6 (0-1.0) k/uL Eosinophils # 0.3 (0-0.7) k/uL Basophils # 0.0 (0-0.2) k/uL Sodium 132 L (137-145) mmol/L Potassium 3.9 (3.5-5.1) mmol/L Chloride 90 L (98-107) mmol/L Carbon Dioxide 25 (22-30) mmol/L Anion Gap 17 mmol/L BUN 9 (7-17) mg/dL Creatinine 0.50 L (0.52-1.04) mg/dL Est GFR (CKD-EPI)AfAm >90 (>60 ml/min/1.73 sqM) Est GFR (CKD-EPI)NonAf >90 (>60 ml/min/1.73 sqM) Glucose 121 H (74-99) mg/dL Plasma Lactic Acid Leopold[place] (0.7-2.0) mmol/L Calcium 10.4 H (8.4-10.2) mg/dL Phosphorus 3.7 (2.5-4.5) mg/dL Magnesium 1.6 (1.6-2.3) mg/dL Total Bilirubin 0.3 (0.2-1.3) mg/dL AST 25 (14-36) U/L ALT 32 (9-52) U/L Alkaline Phosphatase 61 (38-126) U/L Total Creatine Kinase 29 L (30-135) U/L CK-MB (CK-2) 0.3 (0.0-2.4) ng/mL CK-MB (CK-2) Rel Index 1.0 Troponin I <0.012 (0.000-0.034) ng/mL Total Protein 7.6 (6.3-8.2) g/dL Albumin 4.7 (3.5-5.0) g/dL Urine Color Urine Appearance (Clear) Urine pH (5.0-8.0) Ur Specific [place] (1.001-1.035) Urine Protein (Negative) Urine Glucose (UA) (Negative) Urine Ketones (Negative) Urine Blood (Negative) Urine Nitrite (Negative) Urine Bilirubin (Negative) Urine Urobilinogen (<2.0) mg/dL Ur Leukocyte Esterase (Negative) 10/02/17 10/02/17 Range/Units 11:05 11:05 WBC (3.8-10.6) k/uL RBC (3.80-5.40) m/uL Hgb (11.4-16.0) gm/dL Hct (34.0-46.0) % MCV (80.0-100.0) fL MCH (25.0-35.0) pg MCHC (31.0-37.0) g/dL RDW (11.5-15.5) % Plt Count (150-450) k/uL Neutrophils % % Lymphocytes % % Monocytes % % Eosinophils % % Basophils % % Neutrophils # (1.3-7.7) k/uL Lymphocytes # (1.0-4.8) k/uL Monocytes # (0-1.0) k/uL Eosinophils # (0-0.7) k/uL Basophils # (0-0.2) k/uL Sodium (137-145) mmol/L Potassium (3.5-5.1) mmol/L Chloride (98-107) mmol/L Carbon Dioxide (22-30) mmol/L Anion Gap mmol/L BUN (7-17) mg/dL Creatinine (0.52-1.04) mg/dL Est GFR (CKD-EPI)AfAm (>60 ml/min/1.73 sqM) Est GFR (CKD-EPI)NonAf (>60 ml/min/1.73 sqM) Glucose (74-99) mg/dL Plasma Lactic Acid Leopoldo 2.8 H* (0.7-2.0) mmol/L Calcium (8.4-10.2) mg/dL Phosphorus (2.5-4.5) mg/dL Magnesium (1.6-2.3) mg/dL Total Bilirubin (0.2-1.3) mg/dL AST (14-36) U/L ALT (9-52) U/L Alkaline Phosphatase (38-126) U/L Total Creatine Kinase (30-135) U/L CK-MB (CK-2) (0.0-2.4) ng/mL CK-MB (CK-2) Rel Index Troponin I (0.000-0.034) ng/mL Total Protein (6.3-8.2) g/dL Albumin (3.5-5.0) g/dL Urine Color Light Yellow Urine Appearance Clear (Clear) Urine pH 7.5 (5.0-8.0) Ur Specific [place] 1.006 (1.001-1.035) Urine Protein Negative (Negative) Urine Glucose (UA) Negative (Negative) Urine Ketones Negative (Negative) Urine Blood Negative (Negative) Urine Nitrite Negative (Negative) Urine Bilirubin Negative (Negative) Urine Urobilinogen <2.0 (<2.0) mg/dL Ur Leukocyte Esterase Negative (Negative) Disposition Clinical Impression: Intractable nausea and vomiting, Status post total right knee replacement Disposition: ADMITTED IP TO THIS HOSP Condition: Good Is patient prescribed a controlled substance at d/c from ED?: No Referrals: Ade Huston MD [Primary Care Provider] - 1-2 days
[2017-10-02 12:07] LABS: Creatine Kinase MB 0.3 ng/mL (0.0-2.4); Troponin I <0.012 ng/mL (0.000-0.034)
[2017-10-02] MEDS ORDERED: LORazepam 2 MG/ML INJ IV PRN (12:45)
[2017-10-02] MEDS ORDERED: KETOROLAC 30 MG/ML 1 ML VIAL IVP STA (12:45)
[2017-10-02] MEDS ORDERED: METOCLOPRAMIDE 5 MG/ML 2 ML VIAL IVP STA (12:46)
[2017-10-02] MEDS ORDERED: diphenhydrAMINE 50 MG/ML 1 ML VIAL IVP STA (12:46)
[2017-10-02] MEDS ORDERED: diphenhydrAMINE 50 MG/ML 1 ML VIAL IVP PRN (12:46)
[2017-10-02] MEDS ORDERED: ACETAMINOPHEN IV (For NPO) 1,000 MG in EMPTY BAG 1 BAG IVPB STA (12:47)
[2017-10-02] MEDS ORDERED: ACETAMINOPHEN TAB 500 MG TAB PO PRN (15:56)
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
[2017-10-02] MEDS: SODIUM CHLORIDE 0.9% 1,000 ML IV SCH (16:27)
[2017-10-02] MEDS: ATENOLOL 50 MG TAB PO SCH (17:03)
[2017-10-02] MEDS: ASPIRIN 81 MG PO SCH (17:03)
[2017-10-02] MEDS: CHLORTHALIDONE 25 MG TAB PO SCH (17:04)
[2017-10-02] MEDS ORDERED: METOCLOPRAMIDE 5 MG/ML 2 ML VIAL IVP SCH (18:00)
[2017-10-02] MEDS: ONDANSETRON 4 MG/2 ML VIAL IVP PRN (19:24)
[2017-10-02] MEDS: diphenhydrAMINE 25 MG CAP PO SCH (20:07)
[2017-10-02] MEDS: ACETAMINOPHEN TAB 500 MG TAB PO SCH (20:07)
[2017-10-02] MEDS: ATORVASTATIN 10 MG TAB PO SCH (20:08)
[2017-10-02] MEDS: HEPARIN SODIUM,PORCINE 5,000 UNIT/ML 1 ML VIAL SQ SCH (20:08)
[2017-10-03] MEDS: ONDANSETRON 4 MG/2 ML VIAL IVP PRN ×2 (02:21→07:27)
[2017-10-03 08:10] LABS: Anion Gap 10 mmol/L; Blood Urea Nitrogen 8 mg/dL (7-17); Calcium 8.8 mg/dL (8.4-10.2); Carbon Dioxide 25 mmol/L (22-30); Chloride 95 mmol/L (98-107); Glucose 125 mg/dL (74-99); Magnesium 1.5 mg/dL (1.6-2.3); Potassium 3.7 mmol/L (3.5-5.1); Sodium 130 mmol/L (137-145)
[2017-10-03] MEDS: ATENOLOL 50 MG TAB PO SCH (09:12)
[2017-10-03] MEDS: LISINOPRIL 20 MG TAB PO SCH (09:13)
[2017-10-03] MEDS: HEPARIN SODIUM,PORCINE 5,000 UNIT/ML 1 ML VIAL SQ SCH ×2 (09:13→20:25)
[2017-10-03] MEDS: CHLORTHALIDONE 25 MG TAB PO SCH (09:13)
[2017-10-03] MEDS: PANTOPRAZOLE 40 MG/10 ML VIAL IVP SCH (09:14)
[2017-10-03] MEDS: SODIUM CHLORIDE 0.9% 1,000 ML IV SCH ×2 (09:14→17:23)
[2017-10-03 10:13] LABS: Amylase 57 U/L (30-110); Lipase 269 U/L (23-300)
--- NOTE | 2017-10-03 10:26 | P.PN ---
Subjective Progress Note Date: 10/03/17 This is a 75-year-old female with past medical history noted below who presented to the emergency room with worsening nausea and diarrhea. Patient said that her symptoms started approximately couple of weeks ago after she got released from a local rehab facility. Patient said that she was having loose bowel movement and occasionally up to 5 bowel movements per day. She was having poor by mouth intake with nausea and what she describes as dry heaves. She said that her symptoms were waxing and waning and she was having good days and bad days. Over the past 2 weeks she vomited approximately 3 or 4 times. She believes that this was attributed to her taking [place] at the rehab facility. She said that she works with her primary care physician to wean herself off of the [place]. Yesterday she was doing fairly well and then she went to bed and suddenly at midnight she got up feeling sick to her stomach. She continued to have watery bowel movement. She denies any blood in her stool. No black or tarry stool. No significant abdominal pain other than some mild epigastric discomfort. Patient was more concerned and decided to come to the emergency room. She was evaluated in the emergency room and most of her local lab work was within acceptable range. She was noted to have elevated lactic acid but her blood pressure was normal. She was started on IV fluid hydration given multiple doses of IV Benadryl and IV Ativan is currently admitted to the hospital for further evaluation. She is feeling relatively better right now. She is getting ready to eat her so. No stool sample was sent as of yet. 10/03/2017 patient reports no further episodes of diarrhea. Last stool was formed. And unable to collect a stool for C. diff. Patient reports having a lot of nausea and dry heaves over the last couple weeks. She was tapered off of her [place] about 4 days ago. And continues to have epigastric discomfort with nausea. Patient's had decrease in appetite. His never had an EGD. Patient denies any chest pain or shortness of breath. Denies any difficulty with urinating or any burning with urination. Patient denies any alcohol history. Amylase and lipase are normal as well as LFTs. Denies NSAID use Objective - Vital Signs Vital signs: Vital Signs Temp 98.1 F 10/03/17 08:17 Pulse 79 10/03/17 08:17 Resp 16 10/03/17 08:17 BP 146/67 10/03/17 08:17 Pulse Ox 98 10/03/17 08:17 Intake & Output 10/02/17 10/03/17 10/03/17 18:59 06:59 18:59 Weight 69.853 kg Other: Voiding Method Toilet # Voids 1 2 - Exam Head normocephalic Neck supple Lungs clear to auscultation bilaterally no wheezing or crackles Heart regular rate and rhythm S1-S2, no rub or gallop Abdomen is soft epigastric tenderness nondistended positive bowel sounds no hepatosplenomegaly Extremities no edema Neuro alert and orientated to 3 - Labs CBC & Chem 7: 10/02/17 11:05 10/03/17 07:05 Labs: Abnormal Lab Results - Last 24 Hours (Table) 10/02/17 10/02/17 10/02/17 Range/Units 11:05 11:05 11:05 MCV 79.9 L (80.0-100.0) fL Sodium 132 L (137-145) mmol/L Chloride 90 L (98-107) mmol/L Creatinine 0.50 L (0.52-1.04) mg/dL Glucose 121 H (74-99) mg/dL Plasma Lactic Acid Leopold[place] (0.7-2.0) mmol/L Calcium 10.4 H (8.4-10.2) mg/dL Magnesium (1.6-2.3) mg/dL Total Creatine Kinase 29 L (30-135) U/L 10/02/17 10/03/17 Range/Units 11:05 07:05 MCV (80.0-100.0) fL Sodium 130 L (137-145) mmol/L Chloride 95 L (98-107) mmol/L Creatinine (0.52-1.04) mg/dL Glucose 125 H (74-99) mg/dL Plasma Lactic Acid [place] 2.8 H* (0.7-2.0) mmol/L Calcium (8.4-10.2) mg/dL Magnesium 1.5 L (1.6-2.3) mg/dL Total Creatine Kinase (30-135) U/L Microbiology - Last 24 Hours (Table) 10/02/17 11:05 Urine Culture - Preliminary Urine,Clean Catch Assessment and Plan Assessment: 1. Possible acute viral gastroenteritis: Diarrhea has improved. However, patient continues to have epigastric pain as well as nausea and dry heaves. The nausea and dry heaves and abdominal discomfort has been ongoing for the past 2 weeks. GI service will be consulted for possible EGD. Continue with Protonix 2. Essential hypertension: Blood pressures are stable continue Current medications. Catapres patch added in ER 3. Hyponatremia: Sodium 130. Continue with IV fluids. May been related to the diarrhea now resolved. Also will discontinue chlorthalidone. Repeat labs in a.m. 4. Elevated lactic acid improved with IV fluids. Possibly related to patient' s gastroenteritis 5. Possible narcotic withdrawal. Patient had been taking 7 [place] 7.5 mg tablets daily. And had been tapered down by her physician. She is currently been off the [place] for 4 days. Doubt that this is still contributing to her epigastric discomfort and nausea. There are concerns that the [place] may have masked symptoms of a possible peptic ulcer. Patient will be seen by GI service for possible EGD GI prophylaxis Protonix and DVT prophylaxis subcu heparin I performed an examination of the patient and discussed their management with the physician Smog Technician. I have reviewed the Physician Smog Technician's notes and agree with the documented findings and plan of care
[2017-10-03 11:24] VITALS: BMI 31.1
[2017-10-03] MEDS: MAGNESIUM SULFATE-D5W PMX 1 GM in DEXTROSE/WATER 1 100ML.BAG IVPB SCH ×2 (11:55→13:41)
[2017-10-03] MEDS: ASPIRIN 81 MG PO SCH (17:23)
[2017-10-03] MEDS: ATORVASTATIN 10 MG TAB PO SCH (20:24)
[2017-10-03] MEDS: ACETAMINOPHEN TAB 500 MG TAB PO SCH (20:24)
[2017-10-03] MEDS: diphenhydrAMINE 25 MG CAP PO SCH (20:24)
[2017-10-03] MEDS: ALPRAZolam 0.25 MG TAB PO PRN (23:49)
[2017-10-04] MEDS: HEPARIN SODIUM,PORCINE 5,000 UNIT/ML 1 ML VIAL SQ SCH ×2 (07:32→20:40)
[2017-10-04] MEDS: PANTOPRAZOLE 40 MG/10 ML VIAL IVP SCH (07:59)
[2017-10-04] MEDS: LISINOPRIL 20 MG TAB PO SCH (07:59)
[2017-10-04] MEDS: SODIUM CHLORIDE 0.9% 1,000 ML IV SCH ×2 (07:59→20:42)
[2017-10-04] MEDS: ATENOLOL 50 MG TAB PO SCH (07:59)
[2017-10-04 08:42] LABS: Anion Gap 10 mmol/L; Blood Urea Nitrogen 6 mg/dL (7-17); Calcium 8.9 mg/dL (8.4-10.2); Carbon Dioxide 28 mmol/L (22-30); Chloride 100 mmol/L (98-107); Glucose 140 mg/dL (74-99); Magnesium 1.7 mg/dL (1.6-2.3); Potassium 3.8 mmol/L (3.5-5.1); Sodium 138 mmol/L (137-145)
--- NOTE | 2017-10-04 08:51 | US ---
EXAMINATION TYPE: US abdomen complete DATE OF EXAM: 10/04/2017 COMPARISON: NONE CLINICAL HISTORY: pain. NPO. Patient states left side pain. N/V. EXAM MEASUREMENTS: Liver Length: 18.2 cm Gallbladder Wall: 0.2 cm CBD: 0.3 cm CHD: 0.4 cm Spleen: 8.9 cm Right Kidney: 9.8 x 4.1 x 3.8 cm Left Kidney: 9.6 x 4.2 x 4.8 cm Pancreas: wnl in its visualized portions Liver: There is a coarse echotexture. Gallbladder: multiple mobile echogenic foci with shadows Evidence for sonographic Edwards's sign: neg CBD: wnl Spleen: wnl Right Kidney: mid lateral simple cystic appearing lesion = 5.0 x 4.8 x 4.3 cm Left Kidney: Medial cystic appearing lesion = 1.0 cm Upper IVC: wnl Abd Aorta: Portions obscured by overlying bowel gas, no AAA identified There is no ascites. Cortical medullary differentiation is maintained within the kidneys. The midpole the right kidney the re is an anechoic focus with increased through transmission and imperceptible wall measuring 5 cm in exophytic location compatible with simple cyst. IMPRESSION: Cholelithiasis. Consider hepatic steatosis. There are limitations to the exam.
--- NOTE | 2017-10-04 12:53 | CONS ---
CONSULTATION DATE OF SERVICE: 10/04/2017 REASON FOR CONSULTATION: Nausea, vomiting, and diarrhea. HISTORY OF PRESENT ILLNESS: The patient is a 66-year-old pleasant female admitted to the hospital with intermittent episodes of nausea, vomiting, and diarrhea for the last 2 months duration. The patient states that she underwent knee replacement and since then has been on narcotic pain medications. She started having intermittent episodes of nausea, vomiting that usually is in the form of dry heaves, but occasionally has emesis maybe once or twice a week. She tried to slowly wean off the [place] and she stopped it completely 6 days ago. She then felt extremely weak, tired, more nauseated with epigastric discomfort and emesis. Around the same time, she started having diarrhea with bowel movements anywhere from 4 to 5 a day which are loose to watery in consistency, but no blood or mucus in the stool. She came to the emergency room with significant dehydration and this morning is feeling much better. In fact, the abdominal pain has resolved. She feels intensely nauseated, has been n.p.o. for now. The diarrhea has resolved. Stool for C difficile toxin was requested, but could not be done. Her last colonoscopy was 4 years ago and was noted to have 2 small polyps. The patient denies any recent travel history. No recent antibiotic use. PAST MEDICAL HISTORY: Significant for diabetes mellitus, DVT, hypertension, hyperlipidemia, rheumatoid arthritis. PAST SURGICAL HISTORY: Appendectomy, hysterectomy, knee replacement, colonoscopy in 2013. SOCIAL HISTORY: No smoking or alcohol use. FAMILY HISTORY: Father has emphysema. Mother had colon cancer. MEDICATIONS AT HOME: Zocor, lisinopril, metformin, atenolol, Xanax, Tylenol, Ecotrin, Zyrtec. ALLERGIES: TERRAMYCIN and PENICILLIN. REVIEW OF SYSTEMS: CARDIOPULMONARY: She denies any chest pain or shortness of breath. GENITOURINARY: No dysuria or hematuria. MUSCULOSKELETAL: Unremarkable. SKIN: Unremarkable. ENDOCRINE: Unremarkable. PSYCHIATRIC: Unremarkable. NEUROLOGY: Unremarkable. ENT/VISION: Unremarkable. CONSTITUTIONAL: No recent weight loss. No fever, chills, night sweats. PHYSICAL EXAMINATION: On physical examination, she appears comfortable in no apparent distress. Vital signs are stable. Blood pressure is 126/62, pulse rate is 57, temperature 97.8. HEENT EXAMINATION: Unremarkable. Conjunctivae pink. Sclerae anicteric. Oral cavity no lesions. NECK: No JVD or lymph node enlargement. Chest was clear to auscultation. HEART: Regular rate and rhythm. Abdomen is soft, nontender, nondistended. Liver and spleen are not palpable. Bowel sounds are positive. No organomegaly EXTREMITIES: No pedal edema. SKIN: No rashes. NEURO: Alert and oriented x3. No focal deficits. LABS: Labs from this morning, basic metabolic panel is within normal limits. Blood sugar 140. Amylase and lipase are normal. Ultrasound of the abdomen showed evidence of gallstones. IMPRESSION: 1. This is a lady who presents with intermittent episodes of nausea, vomiting for the last 2 months duration, probably medication related. She feels that her symptoms began after she was started on narcotic pain medications following the knee surgery 2 months ago. She gradually weaned off the narcotics about 6 days ago at which time she felt extremely weak tired with worsening intense nausea and vomiting part of it probably could be related to narcotic withdrawal, but presently her symptoms have significantly improved in the last 2 days. 2. Diarrhea, rule out viral gastroenteritis, symptoms have resolved. 3. Cholelithiasis. RECOMMENDATION: 1. Advance diet as tolerated. 2. Continue with proton pump inhibitors. 3. If she is able to tolerate her diet with no recurrent symptoms, she can be discharged home tomorrow with an outpatient followup. 4. At this time, we will hold off on any endoscopy intervention as she is feeling better. Thank you for this consultation. MMWILLIAM / LUIS: [id number] /
--- NOTE | 2017-10-04 16:28 | P.PN ---
Subjective Progress Note Date: 10/04/17 This is a 75-year-old female with past medical history noted below who presented to the emergency room with worsening nausea and diarrhea. Patient said that her symptoms started approximately couple of weeks ago after she got released from a local rehab facility. Patient said that she was having loose bowel movement and occasionally up to 5 bowel movements per day. She was having poor by mouth intake with nausea and what she describes as dry heaves. She said that her symptoms were waxing and waning and she was having good days and bad days. Over the past 2 weeks she vomited approximately 3 or 4 times. She believes that this was attributed to her taking [place] at the rehab facility. She said that she works with her primary care physician to wean herself off of the [place]. Yesterday she was doing fairly well and then she went to bed and suddenly at midnight she got up feeling sick to her stomach. She continued to have watery bowel movement. She denies any blood in her stool. No black or tarry stool. No significant abdominal pain other than some mild epigastric discomfort. Patient was more concerned and decided to come to the emergency room. She was evaluated in the emergency room and most of her local lab work was within acceptable range. She was noted to have elevated lactic acid but her blood pressure was normal. She was started on IV fluid hydration given multiple doses of IV Benadryl and IV Ativan is currently admitted to the hospital for further evaluation. She is feeling relatively better right now. She is getting ready to eat her so. No stool sample was sent as of yet. 10/03/2017 patient reports no further episodes of diarrhea. Last stool was formed. And unable to collect a stool for C. diff. Patient reports having a lot of nausea and dry heaves over the last couple weeks. She was tapered off of her [place] about 4 days ago. And continues to have epigastric discomfort with nausea. Patient's had decrease in appetite. His never had an EGD. Patient denies any chest pain or shortness of breath. Denies any difficulty with urinating or any burning with urination. Patient denies any alcohol history. Amylase and lipase are normal as well as LFTs. Denies NSAID use. On 10/04/2017 patient is alert and oriented 3 in no apparent distress vital examination is stable no new episodes of nausea vomiting or abdominal pain. Abdomen ultrasound revealed evidence of multiple gallbladder stones without any evidence of acute cholecystitis. Patient was seen and evaluated by gastroenterology no intervention recommended at this time. Objective - Vital Signs Vital signs: Vital Signs Temp 97.7 F 10/04/17 14:40 Pulse 65 10/04/17 14:40 Resp 16 10/04/17 14:40 BP 100/52 10/04/17 14:40 Pulse Ox 95 10/04/17 14:40 Intake & Output 10/03/17 10/04/17 10/04/17 18:59 06:59 18:59 Intake Total 2080 900 1565 Balance 2080 900 1565 Weight 69.853 kg 69.853 kg Intake: Intake, IV Titration 800 900 525 Amount Magnesium Sulfate-D5w Pmx 100 1 gm In Dextrose/Water 1 100ml.bag @ 100 mls/hr IVPB Q1H [facility] Rx#: [id number] Sodium Chloride 0.9% 1, 700 000 ml @ 100 mls/hr IV . Q10H [facility] Rx#:[id number] Sodium Chloride 0.9% 1, 900 525 000 ml @ 75 mls/hr IV . [id number] [facility] Rx#:[id number] Oral 1280 1040 Other: Voiding Method Toilet Toilet Toilet # Voids 2 1 1 - Exam Head normocephalic and atraumatic Neck supple no JVD no goiter Lungs clear to auscultation bilaterally no wheezing or crackles Heart regular rate and rhythm S1-S2, no rub or gallop Abdomen is soft epigastric tenderness nondistended positive bowel sounds no hepatosplenomegaly Extremities no edema Neuro alert and orientated to 3 - Labs CBC & Chem 7: 10/02/17 11:05 10/04/17 08:18 Labs: Abnormal Lab Results - Last 24 Hours (Table) 10/04/17 Range/Units 08:18 BUN 6 L (7-17) mg/dL Glucose 140 H (74-99) mg/dL Microbiology - Last 24 Hours (Table) 10/02/17 11:05 Urine Culture - Final Urine,Clean Catch Assessment and Plan Plan: 1. Possible acute viral gastroenteritis: Diarrhea has improved. However, patient continues to have epigastric pain as well as nausea and dry heaves. The nausea and dry heaves and abdominal discomfort has been ongoing for the past 2 weeks. GI service will be consulted for possible EGD. Continue with Protonix. Abdomen ultrasound revealed evidence of cholelithiasis. 2. Essential hypertension: Blood pressures are stable continue Current medications. Catapres patch added in ER 3. Hyponatremia: Sodium 130. Continue with IV fluids. May been related to the diarrhea now resolved. Also will discontinue chlorthalidone. Repeat labs in a.m. 4. Elevated lactic acid improved with IV fluids. Possibly related to patient' s gastroenteritis 5. Possible narcotic withdrawal. Patient had been taking 7 [place] 7.5 mg tablets daily. And had been tapered down by her physician. She is currently been off the [place] for 4 days. Doubt that this is still contributing to her epigastric discomfort and nausea. There are concerns that the [place] may have masked symptoms of a possible peptic ulcer. Patient will be seen by GI service for possible EGD GI prophylaxis Protonix and DVT prophylaxis subcu heparin
[2017-10-04] MEDS: ASPIRIN 81 MG PO SCH (17:37)
[2017-10-04] MEDS: ATORVASTATIN 10 MG TAB PO SCH (20:39)
[2017-10-04] MEDS: ACETAMINOPHEN TAB 500 MG TAB PO SCH (20:39)
[2017-10-04] MEDS: diphenhydrAMINE 25 MG CAP PO SCH (20:40)
[2017-10-05] MEDS: ALPRAZolam 0.25 MG TAB PO PRN (03:47)
[2017-10-05 08:48] VITALS: BP 129/64; PULSE 71; RESP 16; TEMP 98.1
[2017-10-05] MEDS: HEPARIN SODIUM,PORCINE 5,000 UNIT/ML 1 ML VIAL SQ SCH (08:48)
[2017-10-05] MEDS: ATENOLOL 50 MG TAB PO SCH (08:48)
[2017-10-05] MEDS: LISINOPRIL 20 MG TAB PO SCH (08:49)
[2017-10-05 08:55] LABS: Anion Gap 10 mmol/L; Blood Urea Nitrogen 7 mg/dL (7-17); Calcium 9.5 mg/dL (8.4-10.2); Carbon Dioxide 27 mmol/L (22-30); Chloride 100 mmol/L (98-107); Glucose 141 mg/dL (74-99); Magnesium 1.6 mg/dL (1.6-2.3); Sodium 137 mmol/L (137-145)
[2017-10-05] MEDS ORDERED: PANTOPRAZOLE 40 MG TABLET PO SCH (09:00)
[2017-10-05] MEDS: SODIUM CHLORIDE 0.9% 1,000 ML IV SCH (10:09)
[2017-10-05] MEDS ORDERED: diphenhydrAMINE 25 MG CAP PO PRN (10:50)
--- NOTE | 2017-10-05 12:31 | P.DS ---
Providers Date of admission: 10/02/17 12:47 Attending physician: Eneida Rausch Consults: 10/03/17 10:15 Consult Physician Routine Consulting Provider: Yosvany Li Consult Reason/Comments: nausea and abdominal pain. Possible EGD Do you want consulting provider notified?: Yes Primary care physician: Ade Huston Hospital Course: Diagnosis on discharge 1. Possible acute viral gastroenteritis: Diarrhea has improved. However, patient continues to have epigastric pain as well as nausea and dry heaves. The nausea and dry heaves and abdominal discomfort has been ongoing for the past 2 weeks. GI service will be consulted for possible EGD. Continue with Protonix. Abdomen ultrasound revealed evidence of cholelithiasis. 2. Essential hypertension: Blood pressures are stable continue Current medications. Catapres patch added in ER. Catapres patch was discontinued, patient is able to take oral medications 3. Hyponatremia: Sodium 130. Continue with IV fluids. May been related to the diarrhea now resolved. Also will discontinue chlorthalidone. Repeat labs in a.m. sodium normalized to 137 chlorthalidone was resumed at the time of discharge. 4. Elevated lactic acid improved with IV fluids. Possibly related to patient' s gastroenteritis 5. Possible narcotic withdrawal. Patient had been taking 7 [place] 7.5 mg tablets daily. And had been tapered down by her physician. She is currently been off the [place] for 4 days. Doubt that this is still contributing to her epigastric discomfort and nausea. There are concerns that the [place] may have masked symptoms of a possible peptic ulcer. Patient will be seen by GI service for possible EGD Hospital course: This is a 75-year-old female with past medical history noted below who presented to the emergency room with worsening nausea and diarrhea. Patient said that her symptoms started approximately couple of weeks ago after she got released from a local rehab facility. Patient said that she was having loose bowel movement and occasionally up to 5 bowel movements per day. She was having poor by mouth intake with nausea and what she describes as dry heaves. She said that her symptoms were waxing and waning and she was having good days and bad days. Over the past 2 weeks she vomited approximately 3 or 4 times. She believes that this was attributed to her taking [place] at the rehab facility. She said that she works with her primary care physician to wean herself off of the [place]. Yesterday she was doing fairly well and then she went to bed and suddenly at midnight she got up feeling sick to her stomach. She continued to have watery bowel movement. She denies any blood in her stool. No black or tarry stool. No significant abdominal pain other than some mild epigastric discomfort. Patient was more concerned and decided to come to the emergency room. She was evaluated in the emergency room and most of her local lab work was within acceptable range. She was noted to have elevated lactic acid but her blood pressure was normal. She was started on IV fluid hydration given multiple doses of IV Benadryl and IV Ativan is currently admitted to the hospital for further evaluation. She is feeling relatively better right now. She is getting ready to eat her so. No stool sample was sent as of yet. 10/03/2017 patient reports no further episodes of diarrhea. Last stool was formed. And unable to collect a stool for C. diff. Patient reports having a lot of nausea and dry heaves over the last couple weeks. She was tapered off of her [place] about 4 days ago. And continues to have epigastric discomfort with nausea. Patient's had decrease in appetite. His never had an EGD. Patient denies any chest pain or shortness of breath. Denies any difficulty with urinating or any burning with urination. Patient denies any alcohol history. Amylase and lipase are normal as well as LFTs. Denies NSAID use. On 10/04/2017 patient is alert and oriented 3 in no apparent distress vital examination is stable no new episodes of nausea vomiting or abdominal pain. Abdomen ultrasound revealed evidence of multiple gallbladder stones without any evidence of acute cholecystitis. Patient was seen and evaluated by gastroenterology no intervention recommended at this time. On 10/05/2017 patient is alert and oriented 3 she denies any complaints at this time. There is no fever or chills no headache or dizziness no chest pain or shortness of breath no cough no nausea or vomiting no abdominal pain no diarrhea , no burning was urination no frequency or urgency and no hematuria. Patient is symptoms free she is requesting to be discharged home, she will be sent home on her same home medications, she was told to avoid taking [place], Protonix 40 mg once daily was added to her medication regimen. Follow up with her primary care physician Dr. Huston within 1 week. Patient Condition at Discharge: Good Plan - Discharge Summary Discharge Rx Participant: No New Discharge Prescriptions: New Pantoprazole [Protonix] 40 mg PO DAILY tablet. Continue Simvastatin [Zocor] 20 mg PO HS Multivitamins, Thera [Multivitamin (formulary)] 1 tab PO DAILY Lisinopril 40 mg PO DAILY metFORMIN HCL 1,000 mg PO BID Atenolol/Chlorthalidone [Atenolol-Chlorthalidone 50-25] 1 tab PO DAILY ALPRAZolam [Xanax] 0.25 mg PO BID PRN PRN Reason: Moderate Anxiety Acetaminophen Tab [Tylenol] 500 mg PO DAILY PRN PRN Reason: Pain Aspirin EC [Ecotrin Low Dose] 81 mg PO W/SUPPER Cetirizine HCl [Zyrtec] 10 mg PO DAILY Discontinued Acetaminophen/Diphenhydramine [Tylenol PM Extra Strength] 2 tab PO HS Discharge Medication List Simvastatin [Zocor] 20 mg PO HS 03/30/14 [History] Lisinopril 40 mg PO DAILY 01/12/15 [History] Multivitamins, Thera [Multivitamin (formulary)] 1 tab PO DAILY 01/12/15 [History ] metFORMIN HCL 1,000 mg PO BID 01/12/15 [History] Atenolol/Chlorthalidone [Atenolol-Chlorthalidone 50-25] 1 tab PO DAILY 07/08/17 [History] ALPRAZolam [Xanax] 0.25 mg PO BID PRN 07/17/17 [History] Acetaminophen Tab [Tylenol] 500 mg PO DAILY PRN 10/02/17 [History] Aspirin EC [Ecotrin Low Dose] 81 mg PO W/SUPPER 10/02/17 [History] Cetirizine HCl [Zyrtec] 10 mg PO DAILY 10/02/17 [History] Pantoprazole [Protonix] 40 mg PO DAILY tablet. 10/05/17 [Rx] Follow up Appointment(s)/Referral(s): Ade Huston MD [Primary Care Provider] - 1-2 days
--- NOTE | 2017-10-05 12:39 | PN ---
PROGRESS NOTE DATE OF SERVICE: October 05, 2017. REQUESTING PHYSICIAN: Dr. Rausch. BRIEF HISTORY: The patient is a 66-year-old pleasant white female who was admitted to the hospital with intermittent episodes of nausea, vomiting, and diarrhea on and off for the last 2 months duration. The symptoms got much worse 5 days before hospitalization. She has been having severe nausea, vomiting, and diarrhea with bowel movements anywhere from 5- 6 a day. Since being in the hospital, symptoms are significantly improved. In fact, this morning, she was a little bit nauseated, but no emesis for the last 24 hours. She did have ultrasound of the abdomen done yesterday that showed gallstones. On a regular diet, tolerating well. PHYSICAL EXAMINATION: Appears comfortable in no apparent distress. VITAL SIGNS: Stable. Blood pressure 148/66, pulse rate 59, temperature 97.8. HEENT examination unremarkable. Conjunctivae pink. Sclerae anicteric. Oral cavity no lesions. NECK: No jugular venous distention or lymph node enlargement. Chest was clear to auscultation. CARDIAC: Heart regular rate and rhythm. ABDOMEN: Soft. Bowel sounds are positive. No organomegaly. Extremities: No pedal edema. Skin no rashes. NEUROLOGIC: Alert and oriented x3. No focal deficits. LAB: Done this morning, CBC from yesterday is normal. Basic metabolic panel this morning is normal. IMPRESSION: 1. Intermittent episodes of nausea, vomiting for the last 2 months duration. Most likely related to narcotic use. The patient stopped taking [place] for the last 1 week and the symptoms have gradually improved. 2. Diarrhea, possibly related to viral gastroenteritis, which since has resolved. RECOMMENDATIONS: 1. Advance diet as tolerated. 2. Protonix as needed. 3. She can be discharged home today with an outpatient follow up in 2-3 weeks. MMODL / IJN: [id number] /
== END 2017-10-05 13:27 | disposition home or self-care (01) | DRG 392 ==
LOC: EC 10:04 → 5MS5E 12:47
PROVIDERS: ADMIT Internal Medicine; ATTEND Internal Medicine
DX: A08.4 Viral intestinal infection, unspecified (principal); E87.1 Hypo-osmolality and hyponatremia; F11.23 Opioid dependence with withdrawal; K80.20 Calculus of gallbladder without cholecystitis without obstruction; E11.9 Type 2 diabetes mellitus without complications; E86.0 Dehydration; I10 Essential (primary) hypertension; E78.2 Mixed hyperlipidemia; M19.91 Primary osteoarthritis, unspecified site; M06.9 Rheumatoid arthritis, unspecified; Z79.84 Long term (current) use of oral hypoglycemic drugs; Z79.899 Other long term (current) drug therapy; Z79.82 Long term (current) use of aspirin; Z96.651 Presence of right artificial knee joint; Z86.718 Personal history of other venous thrombosis and embolism; Z86.73 Personal history of transient ischemic attack (TIA), and cerebral infarction without residual deficits; Z87.01 Personal history of pneumonia (recurrent); Z90.710 Acquired absence of both cervix and uterus; Z86.010 Personal history of colon polyps; Z98.42 Cataract extraction status, left eye; Z88.0 Allergy status to penicillin; Z88.1 Allergy status to other antibiotic agents; Z91.040 Latex allergy status; Z82.5 Family history of asthma and other chronic lower respiratory diseases; Z80.0 Family history of malignant neoplasm of digestive organs
CPT/HCPCS: 36415; 76700; 80048; 80053; 81003; 82150; 82550; 82553; 83605; 83690; 83735; 84100; 84484; 85025; 87086; 93005; 96361; 96372; 96374; 96375; 96376; 99285

== ENCOUNTER → 2018-02-26 | Outpatient (CLI) | payer MEDICARE, OTHER ==
--- NOTE | 2018-02-26 12:07 | MM ---
Reason for exam: screening (asymptomatic). Last mammogram was performed 1 year and 6 months ago. History: Patient is postmenopausal. Family history of breast cancer in aunt. Physical Findings: A clinical breast exam by your physician is recommended on an annual basis and results should be correlated with mammographic findings. MG Screening Mammo w CAD Bilateral CC and MLO view(s) were taken. Prior study comparison: September 05, 2016, bilateral MG screening mammo w CAD. February 28, 2015, mammogram, performed at [facility]. There are scattered fibroglandular densities. There are benign appearing round dystrophic calcifications bilaterally, greater in the right breast. There is no discrete abnormality. ASSESSMENT: Benign, BI-RAD 2 RECOMMENDATION: Routine screening mammogram of both breasts in 1 year.
== END ==
LOC: RADMAMWWP 10:24
PROVIDERS: ATTEND Family Medicine
DX: Z12.31 Encounter for screening mammogram for malignant neoplasm of breast (principal)
CPT/HCPCS: 77067

== ENCOUNTER 2018-05-20 10:54 | Emergency (ER) | payer MEDICARE, OTHER ==
[2018-05-20 11:00] VITALS: TEMP 97.8
[2018-05-20 11:48] LABS: Basophils % (A) 1 %; Eosinophils # (A) 0.2 k/uL (0-0.7); Eosinophils % (A) 3 %; HCT 43.6 % (34.0-46.0); HGB 14.4 gm/dL (11.4-16.0); Lymphocytes # (A) 1.9 k/uL (1.0-4.8); Lymphocytes % (A) 28 %; MCH 27.5 pg (25.0-35.0); MCHC 33.1 g/dL (31.0-37.0); MCV 83.1 fL (80.0-100.0); Mean Platelet Volume 6.8; Monocytes # (A) 0.4 k/uL (0-1.0); Monocytes % (A) 5 %; Neutrophils # (A) 4.4 k/uL (1.3-7.7); Neutrophils % (A) 63 %; Platelet Count 317 k/uL (150-450); RBC 5.25 m/uL (3.80-5.40); RDW 13.5 % (11.5-15.5)
[2018-05-20] MEDS ORDERED: fentaNYL (PF) 50 MCG/ML 2 ML AMP IVP STA (11:48)
[2018-05-20] MEDS ORDERED: LIDOCAINE 5% PATCH TOPICAL STA (11:48)
[2018-05-20 12:00] LABS: Appearance,Urine Clear (Clear); Bilirubin,Urine Negative (Negative); Blood,Urine Negative (Negative); Color,Urine Yellow; Glucose,Urine (UA) Negative (Negative); Ketones,Urine Negative (Negative); Leukocyte Esterase,Urine Negative (Negative); Nitrite,Urine Negative (Negative); PH, Urine 7.5 (5.0-8.0); Protein,Urine Negative (Negative); Specific Gravity,Urine 1.007 (1.001-1.035); Urobilinogen,Urine <2.0 mg/dL (<2.0)
[2018-05-20 12:02] LABS: ALT 23 U/L (9-52); AST 25 U/L (14-36); Albumin 4.6 g/dL (3.5-5.0); Alkaline Phosphatase 55 U/L (38-126); Amylase 87 U/L (30-110); Anion Gap 14 mmol/L; Blood Urea Nitrogen 15 mg/dL (7-17); Calcium 10.2 mg/dL (8.4-10.2); Carbon Dioxide 25 mmol/L (22-30); Chloride 98 mmol/L (98-107); Glucose 116 mg/dL (74-99); Lipase 403 U/L (23-300); Sodium 137 mmol/L (137-145); Total Bilirubin 0.4 mg/dL (0.2-1.3); Total Protein 7.8 g/dL (6.3-8.2)
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
[2018-05-20 13:36] VITALS: BP 144/65; PULSE 63; RESP 17
== END 2018-05-20 13:36 | disposition home or self-care (01) ==
LOC: EC 10:54
DX: R10.9 Unspecified abdominal pain (principal); E11.9 Type 2 diabetes mellitus without complications; I10 Essential (primary) hypertension; Z79.82 Long term (current) use of aspirin; Z79.84 Long term (current) use of oral hypoglycemic drugs; Z79.899 Other long term (current) drug therapy; Z91.040 Latex allergy status; Z88.1 Allergy status to other antibiotic agents; Z88.0 Allergy status to penicillin; Z91.048 Other nonmedicinal substance allergy status; Z95.1 Presence of aortocoronary bypass graft; Z96.651 Presence of right artificial knee joint; Z86.718 Personal history of other venous thrombosis and embolism; Z86.73 Personal history of transient ischemic attack (TIA), and cerebral infarction without residual deficits
CPT/HCPCS: 36415; 93005; 80053; 82150; 83690; 85025; 81003; 99284; 96374; J3010

== ENCOUNTER 2018-06-24 07:54 | Day surgery (SDC) | payer MEDICARE, OTHER ==
[2018-06-22 13:00] VITALS: BMI 33.5
[~2018-06-24 07:54] MED LIST changes: -ACETAMINOPHEN TAB 500 MG TAB PO ONE; +LACTATED RINGERS 1,000 ML IV SCH; +LIDOCAINE 1% 20 ML VIAL (10MG/ML) FOR IV START INTRADERMA PRN; -MELOXICAM 7.5 MG TAB PO ONE; -MORPHINE SULFATE 4 MG/ML SYRINGE IV PRN; -ONDANSETRON 4 MG/2 ML VIAL IVP ONE; -TRANEXAMIC ACID 1,000 MG in SODIUM CHLORIDE 0.9% 50 ML IVPB ONE; -ceFAZolin IN SWFI 2 GM/20 ML SYRINGE IVP ONE; -fentaNYL (PF) 50 MCG/ML 2 ML AMP IV PRN
[2018-06-24] MEDS ORDERED: LACTATED RINGERS 1,000 ML IV ONE (08:02)
[2018-06-24 08:16] VITALS: RESP 16
[2018-06-24 08:26] LABS: Glucose,Whole Blood 121 mg/dL (75-99)
[2018-06-24] MEDS ORDERED: PROPOFOL 10 MG/ML 20 ML VIAL IV ONE (08:30)
[2018-06-24] MEDS ORDERED: MIDAZOLAM 2 MG/2 ML VIAL ONE (08:30)
[2018-06-24] MEDS ORDERED: fentaNYL (PF) 50 MCG/ML 2 ML AMP ONE (08:30)
--- NOTE | 2018-06-24 09:00 | P.PCN ---
Date of Procedure: 06/24/18 Procedure(s) Performed: Brief history: Patient is a pleasant 67-year-old white female, scheduled for an elective upper endoscopy as well as colonoscopy as a part of evaluation of abdominal pain, GERD and prior history of colon polyps. Last colonoscopy was 5 years ago. Procedure performed: Esophagogastroduodenoscopy with biopsy Colonoscopy Preoperative diagnosis: GERD/left upper quadrant abdominal pain History of colon polyps Anesthesia: MAC Procedure: After informed consent was obtained from the patient was brought into the endoscopy unit and IV sedation was administered by anesthesia under continuous monitoring. Initially upper endoscopy was done. The Olympus GF 160 video endoscope was inserted inserted into the mouth and esophagus intubated without any difficulty and was gradually advanced into the stomach and duodenum and carefully examined. The bulb and second part of the duodenum appeared normal. The scope was then withdrawn into the stomach adequately insufflated with air and upon careful examination the antrum had mild gastritis and biopsies were done from this area. The body, cardia and fundus appeared normal. The scope was then withdrawn into the esophagus. The GE junction was located at 40 cm to the incisors. It appeared regular with no erythema erosions or ulcerations. there was segmental erythema the GE junction consistent with LA grade a reflux esophagitis. Rest of the esophagus appeared normal. Patient tolerated the procedure well. At this time the patient continued to remain sedation. Initial digital rectal examination was normal. Olympus CF 160 video colonoscope was then inserted into the rectum and gradually advanced to the cecum without any difficulty. Careful examination was performed as the scope was gradually being withdrawn. The prep was excellent. The cecum, ascending colon, transverse colon, descending colon, sigmoid colon and rectum appeared normal. Scattered left sided diverticulosis seen. Retroflexion was performed in the rectum and grade 2 internal hemorrhoids were noted. Patient tolerated the procedure well. Impression: 1. Upper endoscopy revealed mild gastritis and a grade A reflux esophagitis 2. Colonoscopy revealed scattered sigmoidal diverticulosis and grade 2 internal hemorrhoids Recommendations: Findings of this examination were discussed with the patient as well as her family. She will follow with the biopsy results. She was advised to have a repeat surveillance colonoscopy in 5 years from now because of the prior history of colon polyps.
[2018-06-24 09:12] VITALS: BP 118/56; PULSE 70
== END 2018-06-24 10:05 | disposition home or self-care (01) ==
LOC: ORWHC2ENDO 07:54
PROVIDERS: ATTEND Internal Medicine Gastroenterology
DX: Z12.11 Encounter for screening for malignant neoplasm of colon (principal); K29.50 Unspecified chronic gastritis without bleeding; K21.0 Gastro-esophageal reflux disease with esophagitis; K57.30 Diverticulosis of large intestine without perforation or abscess without bleeding; K64.1 Second degree hemorrhoids; Z86.010 Personal history of colon polyps; I10 Essential (primary) hypertension; E78.5 Hyperlipidemia, unspecified; E11.9 Type 2 diabetes mellitus without complications; M06.9 Rheumatoid arthritis, unspecified; Z79.84 Long term (current) use of oral hypoglycemic drugs; Z79.82 Long term (current) use of aspirin; Z79.899 Other long term (current) drug therapy; Z88.0 Allergy status to penicillin; Z88.1 Allergy status to other antibiotic agents; Z91.040 Latex allergy status; Z86.718 Personal history of other venous thrombosis and embolism; Z86.73 Personal history of transient ischemic attack (TIA), and cerebral infarction without residual deficits
CPT/HCPCS: 88305; 43239; J2250; J3010; J2704; G0105

== ENCOUNTER → 2018-09-16 | Outpatient (CLI) | payer MEDICARE, OTHER ==
[2018-09-16 12:45] LABS: HGB 13.5 gm/dL (11.4-16.0); MCH 28.3 pg (25.0-35.0); MCHC 33.8 g/dL (31.0-37.0); MCV 83.7 fL (80.0-100.0); Mean Platelet Volume 7.2; Platelet Count 347 k/uL (150-450); RBC 4.78 m/uL (3.80-5.40); RDW 14.7 % (11.5-15.5); WBC 8.4 k/uL (3.8-10.6)
[2018-09-16 12:56] LABS: Appearance,Urine Clear (Clear); Bilirubin,Urine Negative (Negative); Blood,Urine Negative (Negative); Color,Urine Light Yellow; Glucose,Urine (UA) Negative (Negative); Ketones,Urine Negative (Negative); Leukocyte Esterase,Urine Negative (Negative); Nitrite,Urine Negative (Negative); PH, Urine 7.5 (5.0-8.0); Protein,Urine Negative (Negative); Specific Gravity,Urine 1.007 (1.001-1.035); Urobilinogen,Urine <2.0 mg/dL (<2.0)
[2018-09-16 13:00] LABS: ALT 35 U/L (9-52); AST 24 U/L (14-36); Albumin 4.6 g/dL (3.5-5.0); Alkaline Phosphatase 54 U/L (38-126); Anion Gap 9 mmol/L; Blood Urea Nitrogen 12 mg/dL (7-17); Calcium 10.3 mg/dL (8.4-10.2); Carbon Dioxide 30 mmol/L (22-30); Chloride 99 mmol/L (98-107); Glucose 98 mg/dL (74-99); Potassium 4.3 mmol/L (3.5-5.1); Sodium 138 mmol/L (137-145); Total Bilirubin 0.5 mg/dL (0.2-1.3); Total Protein 7.3 g/dL (6.3-8.2)
[2018-09-16 13:04] LABS: Partial Thromboplastin Time 24.9 sec (22.0-30.0); Prothrombin Time 10.5 sec (9.0-12.0)
== END | disposition home or self-care (01) ==
LOC: LABPAT 11:50
PROVIDERS: ATTEND Orthopaedic Surgery Sports Medicine
DX: Z01.812 Encounter for preprocedural laboratory examination (principal)
CPT/HCPCS: 36415; 80053; 81003; 85027; 85610; 85730; 87070

== ENCOUNTER 2018-10-14 12:30 | Inpatient (IN) | payer MEDICARE, OTHER ==
[~2018-10-14 12:30] MED LIST changes: -LACTATED RINGERS 1,000 ML IV SCH; -LIDOCAINE 1% 20 ML VIAL (10MG/ML) FOR IV START INTRADERMA PRN; +MELOXICAM 7.5 MG TAB PO ONE; +ROPIVACAINE 246.25 MG, EPINEPHrine 0.5 MG, KETOROLAC 30 MG, WATER FOR INJECTION,STERILE... MISCELLANE ONE; +TRANEXAMIC ACID 1,000 MG in SODIUM CHLORIDE 0.9% 100 ML IVPB ONE; +ceFAZolin IN SWFI 2 GM/20 ML SYRINGE IVP ONE
[2018-10-14] MEDS ORDERED: NALOXONE 0.4 MG/ML 1 ML VIAL IV PRN (12:46)
[2018-10-14] MEDS ORDERED: HYDROcodone/APAP 5-325MG 1 EACH TAB PO PRN (12:46)
[2018-10-14] MEDS ORDERED: HYDROcodone/APAP 7.5-325MG 1 EACH TAB PO PRN (12:46)
[2018-10-14] MEDS ORDERED: HYDROcodone/APAP 10-325MG 1 EACH TAB PO PRN (12:46)
[2018-10-14] MEDS ORDERED: NA PHOS,M-B/NA PHOS,DI-BA 133 ML ENEMA RECTAL PRN (12:46)
[2018-10-14] MEDS ORDERED: DIAZEPAM 5 MG TAB PO PRN (12:46)
[2018-10-14] MEDS ORDERED: traMADol 50 MG TAB PO PRN (12:46)
[2018-10-14] MEDS ORDERED: ONDANSETRON 4 MG/2 ML VIAL IVP PRN (12:46)
[2018-10-14] MEDS ORDERED: TEMAZEPAM 15 MG CAP PO PRN (12:46)
[2018-10-14] MEDS ORDERED: MAGNESIUM HYDROXIDE 2,400 MG/10 ML CUP PO PRN (12:46)
[2018-10-14] MEDS ORDERED: HYDROmorphone 0.5 MG/0.5 ML SYRINGE IVP PRN ×2 (12:46)
[2018-10-14] MEDS ORDERED: BISACODYL 10 MG SUPP RECTAL PRN (12:46)
[2018-10-14] MEDS: ACETAMINOPHEN TAB 500 MG TAB PO ONE ×2 (13:11→19:27)
[2018-10-14] MEDS: LACTATED RINGERS 1,000 ML IV SCH ×2 (13:11→21:29)
[2018-10-14] MEDS: ONDANSETRON 4 MG/2 ML VIAL IVP ONE ×2 (13:11→19:27)
[2018-10-14 13:22] LABS: Glucose,Whole Blood 131 mg/dL (75-99)
[2018-10-14] MEDS ORDERED: DEXAMETHASONE SOD PHOSPHATE 10 MG/ML 1 ML VIAL IV ONE (13:34)
[2018-10-14] MEDS ORDERED: PROPOFOL 10 MG/ML 20 ML VIAL IV ONE (15:39)
[2018-10-14] MEDS ORDERED: SODIUM CHLORIDE 0.9% 100 ML BAG ONE (15:39)
[2018-10-14] MEDS ORDERED: ePHEDrine SULFATE/0.9% NACL/PF 50 MG/5 ML SYRINGE IV ONE (15:39)
[2018-10-14] MEDS ORDERED: MIDAZOLAM 2 MG/2 ML VIAL ONE (15:39)
[2018-10-14] MEDS ORDERED: TRANEXAMIC ACID 1,000 MG/10 ML VIAL ONE (15:39)
[2018-10-14] MEDS ORDERED: fentaNYL (PF) 50 MCG/ML 2 ML AMP ONE (15:39)
[2018-10-14] MEDS ORDERED: ceFAZolin IN SWFI 2 GM/20 ML SYRINGE IVP SCH (16:00)
[2018-10-14] MEDS: ROPIVACAINE 246.25 MG, EPINEPHrine 0.5 MG, KETOROLAC 30 MG, WATER FOR INJECTION,STERILE... MISCELLANE ONE ×8 (16:24→16:51)
[2018-10-14] MEDS ORDERED: CLINDAMYCIN 1,800 MG in SODIUM CHLORIDE 0.9% IRRIGATIO 3,000 ML IRRIGATION ONE (16:38)
[2018-10-14 18:30] LABS: Glucose,Whole Blood 199 mg/dL (75-99)
--- NOTE | 2018-10-14 18:34 | XR ---
PROCEDURE: XR knee limited LT - 2V DATE AND TIME: 10/14/2018 6:06 PM CLINICAL INDICATION: PHH; Evaluation for Postop abnormality and alignment TECHNIQUE: Department protocol COMPARISON: None FINDINGS: TKR in anatomic position and alignment. Postprocedure changes noted. No unexpected findings . IMPRESSION: Postoperative 2 views.
[2018-10-14 18:59] VITALS: BMI 34.7
[2018-10-14] MEDS: HYDROmorphone 0.5 MG/0.5 ML SYRINGE IVP PRN ×2 (20:08→23:33)
[2018-10-14] MEDS: SENNOSIDES-DOCUSATE SODIUM 1 EACH TAB PO SCH (20:08)
[2018-10-14] MEDS: ASPIRIN 325 MG TAB PO SCH (20:08)
[2018-10-14] MEDS: HYDROcodone/APAP 5-325MG 1 EACH TAB PO PRN (21:33)
--- NOTE | 2018-10-14 22:59 | OP ---
OPERATIVE REPORT DATE OF PROCEDURE: 10/14/2018. SURGEON: Oscar Edwards MD. INSPECTOR DIALS: Robbi SHARP. PREOPERATIVE DIAGNOSIS: Left knee osteoarthrosis. POSTOPERATIVE DIAGNOSIS: Left knee osteoarthrosis. OPERATION: Left total knee arthroplasty. ANESTHESIA: Spinal with sedation. ESTIMATED BLOOD LOSS: 100 mL. TOURNIQUET TIME: 46 minutes at 250 mmHg. COMPLICATIONS: None apparent. DRAINS: None. DISPOSITION: Post-Anesthesia Care Unit. INDICATIONS: Alana is a 67-year-old female with longstanding history of left knee pain. History and physical examination are consistent with advanced left knee osteoarthrosis. She has been through significant nonoperative management up to this point. Further treatment options were discussed and she has decided to go forward with left total knee arthroplasty. The risks of the procedure were discussed with her in detail. These risks include but are not limited to risk of infection, nerve damage, bleeding, pain, and a small risk of deep vein thrombosis which could lead to fatal pulmonary embolism. There is also a risk of loosening of the implant which could require revision operation. The patient understands these risks. All of her questions were answered to her satisfaction. Appropriate informed consent was obtained. DESCRIPTION OF THE PROCEDURE: The patient was identified in the preoperative holding area. Surgical site was marked by both the patient and myself. She was given 2 grams of Ancef IV for prophylactic purposes. She was then transferred to the operative suite. She was placed supine on the operating room table. Spinal anesthetic was then administered and dosed per the anesthesia department without apparent complication. Examination under anesthesia was then performed. The patient was 2-3 degrees shy of full extension. She had 95 degrees of flexion. The medial collateral ligament, lateral collateral ligament and posterior cruciate ligaments were stable. Tourniquet was then placed high on the left upper thigh, well padded in preparation for surgery. The patient's left lower extremity was then prepped and draped in usual sterile fashion. A standard surgical pause was then undertaken to ensure that we were operating on the correct site and that appropriate preoperative antibiotics had been given. All staff in the room were in agreement and we proceeded. The outlines of the patella were marked with a surgical pen. A planned 12 cm vertical incision centered over the patella was marked with a surgical pen. The leg was then exsanguinated with an Esmarch dressing. The knee was then flexed and the tourniquet was inflated to 250 mmHg. The total tourniquet time for the procedure was 46 minutes. Incision was then made with a 10-blade scalpel. Dissection was carried down sharply to the overlying fascia. Great care was taken to minimize the skin flaps. The knee was then exposed using a standard medial parapatellar approach. A small cuff of quadriceps tendon was then left for suturing. She was in a bit of varus preoperatively. A standard medial release was then made. Superficial medial collateral ligament was dissected off the bone around to the posterior aspect of the proximal tibia. The medial meniscus was then excised as well. The lateral meniscus was also released anteriorly. The leg was then externally rotated. The patella was everted. The knee was flexed. The retractors were then placed to protect the collateral ligaments. I then proceeded to remove the infrapatellar fat pad. This was excised sharply tangentially with the fibers of the patellar tendon. I then proceeded to remove the peripheral osteophytes. This was done with a rongeur. I then proceeded with the distal femoral resection. She did have near-full extension. A planned 9 mm resection was then done. The femoral canal was then entered in the midline of the femur approximately 10 mm anterior to the origin of the posterior cruciate ligament. The randolph was then advanced down the center of the femur and the randolph was placed intramedullary. Based on the preoperative radiographs, the angle between the anatomic and mechanical axis of the femur was approximately 4-5 degrees. The valgus angle of the distal femoral cutting guide was then set at 4 degrees for the left knee. The distal femoral cutting guide was then advanced over the intramedullary randolph. This was seated firmly against the femur. I then, as mentioned, planned to take 9 mm off the distal femur. The cutting block was then secured onto the femur with pins. The jig was then removed. The distal femoral cut was made through the slot of the block. The pins were then removed. The distal femoral cutting block was removed. The accuracy of the distal femoral cuts was checked with 2 flat bars. I then proceeded with femoral sizing. The posterior referencing sizing guide was held firmly against the resected distal surface of the femur. The posterior condyles were resting on the posterior plane of the guide. The sizing stylus was then placed on to the anterior femur. The size was measured as a size 5. I then assessed for femoral rotation. The plan was for 3 degrees of external rotation. Three degrees of external rotation was placed onto the jig. These holes were then marked. I then confirmed the rotation by 3 separate methods. This was done using epicondylar axis as well as [place] line and posterior referencing. It was deemed that the external rotation was proper. I then went forward with placing the femoral cutting block. This was placed over the previously placed pin holes. The Familia wing was then placed onto the anterior slots to ensure that we would not notch the anterior femur with the anterior femoral cut. I then proceed with the anterior femoral cut. This was flush with the anterior cortex of the femur. The posterior cuts were then made followed by the anterior chamfer cut, and then the posterior chamfer cut. The cutting block was then removed. Throughout the resection, the collateral ligaments were protected with retractors. I then placed a trial size 5 femur. It fit slightly wide mediolateral, but the narrow was appropriate and fit flush with the distal end of the femur. The holes were then made. I then proceeded with the tibial cut. I planned for a cruciate-retaining knee. The guide was placed and set for varus, valgus and for slope. The height was set for an approximate 2 mm resection from the medial tibial plateau, which was the lower side. I was happy with the alignment and amount of resection. The cutting block was then pinned to the proximal tibia. The alignment randolph was removed and the proximal tibia was resected with a reciprocating saw. This was done with retractors protecting the collateral ligaments as well as the posterior cruciate ligament. I then proceeded to evaluate flexion and extension gaps. A 10 mm block was then placed. The flexion and extension gaps were equal. I then proceeded with resection of the posterior osteophytes. She had very extensive posterior osteophytes. This was done using a curved osteotome. This resected the posterior osteophytes. Posterior capsule stripping was also done off the posterior aspect of the femur at this time. The osteophytes were then removed. I then proceeded with resection of the patella. The thickness of the patella was measured using a caliper. The thickness was 22 mm. The thickness of the anticipated patellar dome was then taken into account. Resection was then performed and confirmed to be equal in 4 quadrants using a caliper. Approximately 14 mm of bone remained after resection. A 29 x 8 standard patellar trial was then placed. The holes were drilled. The trial was then placed. I then proceeded with sizing the tibial plate. A size C tibial plate fit nicely. I then placed the trial femur and the tibial tray and the patellar button. A 10 mm trial insert was also placed. The components fit very nicely. She had full extension and flexion. The extension and flexion gaps were equal and stable to both varus and valgus stress. Patella tracked appropriately. Tibial tray rotation was marked with the Bovie. This was externally rotated properly. I then proceeded with tibial preparation. I first drilled the femoral holes and removed the femoral component. The tibial tray was then set for proper external rotation as well as mediolateral placement onto the the tibia. It was then pinned into place. I then proceeded with punching the keel. I then decided to proceed with cementing of all of our components. The knee was thoroughly irrigated with sterile saline solution via pulse lavage. The lateral geniculate artery was identified and cauterized. All blood was removed from the bone of the tibia, femur and patella with pulse lavage. I then proceeded with cementing. Two packs of antibiotic bone cement were prepared on the back table by the neurosurgical physician assistant. I then proceeded with cementing the tibia first. The cement was impacted in the keel as well as deeply seated in the bone. A second coat of cement was then placed. The tibia was then impacted into place. Excess cement was removed with [place] and Jokers. I then proceeded with cementing of the femoral component. The femoral component was also cemented using standard technique. Excess cement was removed. A 10 mm trial insert was then placed into the knee. It was brought into full extension with a constant axial load placed until the cement had hardened. The patellar component was then cemented. This was held firmly with a compressive device until the cement had dried. When the cement had dried, the knee was taken out of extension. All excess cement was removed from around the prosthesis. I then trialed the knee with a 10 mm insert. Flexion and extension gaps were appropriate. The knee was stable. It came into full extension. I decided to go forward with a 10 mm cross-linked cruciate-retaining tibial insert. Polyethylene was then placed on to the tray and locked into place. The knee was then reduced. The knee was again further irrigated with sterile saline solution with antibiotic added. The tourniquet was then deflated. Total tourniquet time for the procedure was 46 minutes at 250 mmHg. Final components were Ashley Persona size 5 narrow cruciate-retaining femoral component, size C tibial tray, a 29 x 8 mm patellar trial, and a 10 mm medial-congruent cruciate-retaining polyethylene insert. I then proceeded with closure. Again the knee was thoroughly irrigated. The quadriceps tendon and the medial retinaculum were reapproximated with #2 Ethibond suture. The extensor mechanism was then closed with a running #2 Quill suture. Subcutaneous tissues were then closed with 2-0 Vicryl interrupted suture. The skin was closed with running 3-0 Quill suture. Dermabond was applied to the incision. All sponge and needle counts were deemed correct prior to closure. The patient tolerated procedure without apparent complication. She was transferred to the recovery room in stable condition. MMODL / IJN: [id number] /
[2018-10-14] MEDS: ceFAZolin IN SWFI 2 GM/20 ML SYRINGE IVP SCH (23:33)
[2018-10-15] MEDS: HYDROcodone/APAP 5-325MG 1 EACH TAB PO PRN ×4 (04:42→23:07)
[2018-10-15] MEDS: ceFAZolin IN SWFI 2 GM/20 ML SYRINGE IVP SCH (07:24)
[2018-10-15] MEDS: MULTIVITAMINS, THERA 1 EACH TAB PO SCH (07:24)
[2018-10-15] MEDS: ASPIRIN 325 MG TAB PO SCH ×2 (07:24→21:50)
[2018-10-15 07:33] LABS: Glucose,Whole Blood 167 mg/dL (75-99)
[2018-10-15 08:58] LABS: Basophils % (A) 0 %; Eosinophils % (A) 0 %; HCT 33.4 % (34.0-46.0); Lymphocytes # (A) 1.6 k/uL (1.0-4.8); Lymphocytes % (A) 10 %; MCH 27.5 pg (25.0-35.0); MCHC 32.9 g/dL (31.0-37.0); MCV 83.8 fL (80.0-100.0); Mean Platelet Volume 7.1; Monocytes # (A) 0.9 k/uL (0-1.0); Monocytes % (A) 6 %; Neutrophils # (A) 12.8 k/uL (1.3-7.7); Neutrophils % (A) 83 %; Platelet Count 264 k/uL (150-450); RBC 3.98 m/uL (3.80-5.40); RDW 14.4 % (11.5-15.5); WBC 15.4 k/uL (3.8-10.6)
[2018-10-15 09:21] LABS: Albumin 3.4 g/dL (3.5-5.0); Calcium 8.8 mg/dL (8.4-10.2); Potassium 3.9 mmol/L (3.5-5.1); Total Bilirubin 0.4 mg/dL (0.2-1.3); Total Protein 5.7 g/dL (6.3-8.2)
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
--- NOTE | 2018-10-15 10:40 | P.PN ---
Subjective Progress Note Date: 10/15/18 Principal diagnosis: S/P left TKA Patient is seen at bedside this morning. She is postop day #1 from left total knee arthroplasty. She has pain at the surgical site as expected but denies any new complaints. He denies numbness, tingling or calf pain. Review of systems is negative for fever, chills, chest pain, shortness of breath or other Objective - Vital Signs Vital signs: Vital Signs Temp 97.6 F 10/15/18 07:00 Pulse 64 10/15/18 07:00 Resp 17 10/15/18 07:34 BP 95/61 10/15/18 07:00 Pulse Ox 98 10/15/18 07:00 Intake & Output 10/14/18 10/15/18 10/15/18 18:59 06:59 18:59 Intake Total 701 200 Output Total 100 Balance 601 200 Intake: IV 701 Oral 200 Output: Estimated Blood Loss 100 Other: Voiding Method Bedside Commode # Voids 1 - Exam Inspection reveals a benign surgical wound. There is no active bleeding or drainage. Neurovascular status is intact throughout the lower extremity with motor and sensation fully intact. Calf is soft and nontender. 2+ dorsalis pedis pulse and less than 2 second cap refill is present. - Constitutional General appearance: Present: no acute distress - Labs CBC & Chem 7: 10/15/18 08:35 10/15/18 08:35 Labs: Abnormal Lab Results - Last 24 Hours (Table) 10/14/18 10/14/18 10/15/18 Range/Units 13:18 18:00 07:18 WBC (3.8-10.6) k/uL Hgb (11.4-16.0) gm/dL Hct (34.0-46.0) % Neutrophils # (1.3-7.7) k/uL Sodium (137-145) mmol/L BUN (7-17) mg/dL Glucose (74-99) mg/dL POC Glucose (mg/dL) 131 H 199 H 167 H (75-99) mg/dL Total Protein (6.3-8.2) g/dL Albumin (3.5-5.0) g/dL 10/15/18 10/15/18 Range/Units 08:35 08:35 WBC 15.4 H (3.8-10.6) k/uL Hgb 11.0 L (11.4-16.0) gm/dL Hct 33.4 L (34.0-46.0) % Neutrophils # 12.8 H (1.3-7.7) k/uL Sodium 133 L (137-145) mmol/L BUN 21 H (7-17) mg/dL Glucose 171 H (74-99) mg/dL POC Glucose (mg/dL) (75-99) mg/dL Total Protein 5.7 L (6.3-8.2) g/dL Albumin 3.4 L (3.5-5.0) g/dL Assessment and Plan (1) Osteoarthritis of left knee Narrative/Plan: She will continue with routine postop orthopedic protocol including pain management, wound care, PT, DVT prophylaxis and medical management. Expect that she will transfer to rehab Friday Current Visit: Yes Status: Acute Priority: Medium Code(s): M17.12 - UNILATERAL PRIMARY OSTEOARTHRITIS, LEFT KNEE SNOMED Code(s): 719249279085426 (2) Osteoarthritis of right knee Current Visit: No Status: Acute Priority: Medium Code(s): M17.11 - UNILATERAL PRIMARY OSTEOARTHRITIS, RIGHT KNEE SNOMED Code(s): 095758295703191 (3) Status post total right knee replacement Current Visit: No Status: Acute Priority: Medium Code(s): Z96.651 - PRESENCE OF RIGHT ARTIFICIAL KNEE JOINT SNOMED Code(s): 6863628144994
[2018-10-15] MEDS: LACTATED RINGERS 1,000 ML IV SCH ×2 (10:43→19:45)
--- NOTE | 2018-10-15 11:27 | XR ---
EXAMINATION TYPE: XR chest 2V DATE OF EXAM: 10/15/2018 COMPARISON: 07/18/2017 INDICATION: Rule out pneumonia. No other history is provided TECHNIQUE: Frontal and lateral views of the chest are obtained. FINDINGS: The heart size is normal. The pulmonary vasculature is normal. The lungs are clear. IMPRESSION: 1. No acute pulmonary process.
[2018-10-15 11:32] LABS: Glucose,Whole Blood 167 mg/dL (75-99)
[2018-10-15] MEDS: LORATADINE 10 MG TAB PO SCH (12:23)
[2018-10-15] MEDS: INSULIN ASPART (NovoLOG) 100 UNIT/ML VIAL SQ SCH ×3 (12:24→21:50)
[2018-10-15 13:15] LABS: Appearance,Urine Clear (Clear); Bilirubin,Urine Negative (Negative); Blood,Urine Negative (Negative); Color,Urine Light Yellow; Glucose,Urine (UA) Negative (Negative); Ketones,Urine Negative (Negative); Leukocyte Esterase,Urine Negative (Negative); Nitrite,Urine Negative (Negative); Protein,Urine Negative (Negative); Specific Gravity,Urine 1.012 (1.001-1.035); Urobilinogen,Urine <2.0 mg/dL (<2.0)
[2018-10-15 16:21] LABS: Glucose,Whole Blood 149 mg/dL (75-99)
[2018-10-15] MEDS: metFORMIN 500 MG TAB PO SCH (16:54)
[2018-10-15 20:04] LABS: Glucose,Whole Blood 170 mg/dL (75-99)
[2018-10-15] MEDS: SENNOSIDES-DOCUSATE SODIUM 1 EACH TAB PO SCH (21:50)
[2018-10-16] MEDS: LACTATED RINGERS 1,000 ML IV SCH ×2 (04:37→17:46)
[2018-10-16] MEDS: HYDROcodone/APAP 5-325MG 1 EACH TAB PO PRN ×2 (05:20→19:42)
[2018-10-16 07:24] LABS: Glucose,Whole Blood 145 mg/dL (75-99)
[2018-10-16] MEDS: ASPIRIN 325 MG TAB PO SCH ×2 (07:25→20:31)
[2018-10-16] MEDS: metFORMIN 500 MG TAB PO SCH ×2 (07:25→17:46)
[2018-10-16] MEDS: MULTIVITAMINS, THERA 1 EACH TAB PO SCH (07:25)
[2018-10-16] MEDS: LORATADINE 10 MG TAB PO SCH (07:25)
[2018-10-16] MEDS: INSULIN ASPART (NovoLOG) 100 UNIT/ML VIAL SQ SCH ×4 (07:30→20:32)
[2018-10-16 08:32] LABS: ALT 22 U/L (9-52); AST 23 U/L (14-36); Albumin 3.4 g/dL (3.5-5.0); Alkaline Phosphatase 46 U/L (38-126); Anion Gap 6 mmol/L; Blood Urea Nitrogen 18 mg/dL (7-17); Calcium 8.6 mg/dL (8.4-10.2); Carbon Dioxide 28 mmol/L (22-30); Chloride 98 mmol/L (98-107); Glucose 180 mg/dL (74-99); Potassium 4.1 mmol/L (3.5-5.1); Sodium 132 mmol/L (137-145); Total Bilirubin 0.6 mg/dL (0.2-1.3); Total Protein 5.8 g/dL (6.3-8.2)
[2018-10-16] MEDS ORDERED: LORATADINE 10 MG TAB PO SCH (09:00)
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
[2018-10-16 11:02] LABS: Basophils % (A) 0 %; Eosinophils # (A) 0.2 k/uL (0-0.7); Eosinophils % (A) 2 %; HGB 10.7 gm/dL (11.4-16.0); Lymphocytes # (A) 2.1 k/uL (1.0-4.8); Lymphocytes % (A) 23 %; MCH 27.6 pg (25.0-35.0); MCHC 32.4 g/dL (31.0-37.0); MCV 85.2 fL (80.0-100.0); Mean Platelet Volume 7.5; Monocytes # (A) 0.8 k/uL (0-1.0); Monocytes % (A) 9 %; Neutrophils # (A) 5.6 k/uL (1.3-7.7); Neutrophils % (A) 63 %; Platelet Count 237 k/uL (150-450); RBC 3.88 m/uL (3.80-5.40); RDW 13.9 % (11.5-15.5); WBC 8.8 k/uL (3.8-10.6)
[2018-10-16 11:32] LABS: Glucose,Whole Blood 112 mg/dL (75-99)
--- NOTE | 2018-10-16 15:42 | P.PN ---
Subjective Progress Note Date: 10/16/18 Principal diagnosis: S/P left TKA Patient is seen at bedside this morning. She is postop day #2 from left total knee arthroplasty. She has pain at the surgical site as expected but denies any new complaints. She denies numbness, tingling or calf pain. Review of systems is negative for fever, chills, chest pain, shortness of breath or other Objective - Vital Signs Vital signs: Vital Signs Temp 97 F L 10/16/18 14:47 Pulse 89 10/16/18 14:47 Resp 18 10/16/18 01:27 BP 114/75 10/16/18 14:47 Pulse Ox 95 10/16/18 14:47 Intake & Output 10/15/18 10/16/18 10/16/18 18:59 06:59 18:59 Intake Total 200 Balance 200 Intake: Oral 200 Other: Voiding Method Toilet Toilet Toilet # Voids 2 2 - Exam Inspection reveals a benign surgical wound. There is no active bleeding or drainage. Neurovascular status is intact throughout the lower extremity with motor and sensation fully intact. Calf is soft and nontender. 2+ dorsalis pedis pulse and less than 2 second cap refill is present. - Constitutional General appearance: Present: no acute distress - Labs CBC & Chem 7: 10/16/18 07:50 10/16/18 07:50 Labs: Abnormal Lab Results - Last 24 Hours (Table) 10/15/18 10/15/18 10/16/18 Range/Units 16:09 19:53 07:13 Hgb (11.4-16.0) gm/dL Hct (34.0-46.0) % Sodium (137-145) mmol/L BUN (7-17) mg/dL Glucose (74-99) mg/dL POC Glucose (mg/dL) 149 H 170 H 145 H (75-99) mg/dL Total Protein (6.3-8.2) g/dL Albumin (3.5-5.0) g/dL 10/16/18 10/16/18 10/16/18 Range/Units 07:50 07:50 11:21 Hgb 10.7 L (11.4-16.0) gm/dL Hct 33.0 L (34.0-46.0) % Sodium 132 L (137-145) mmol/L BUN 18 H (7-17) mg/dL Glucose 180 H (74-99) mg/dL POC Glucose (mg/dL) 112 H (75-99) mg/dL Total Protein 5.8 L (6.3-8.2) g/dL Albumin 3.4 L (3.5-5.0) g/dL Microbiology - Last 24 Hours (Table) 10/15/18 12:30 Urine Culture - Preliminary Urine,Clean Catch Assessment and Plan (1) Osteoarthritis of left knee Narrative/Plan: She will continue with routine postop orthopedic protocol including pain management, wound care, PT, DVT prophylaxis and medical management. Expect that she will transfer to rehab Friday. October 17 Current Visit: Yes Status: Acute Priority: Medium Code(s): M17.12 - UNILATERAL PRIMARY OSTEOARTHRITIS, LEFT KNEE SNOMED Code(s): 379217844708810 (2) Osteoarthritis of right knee Current Visit: No Status: Acute Priority: Medium Code(s): M17.11 - UNILATERAL PRIMARY OSTEOARTHRITIS, RIGHT KNEE SNOMED Code(s): 277759227934667 (3) Status post total right knee replacement Current Visit: No Status: Acute Priority: Medium Code(s): Z96.651 - PRESENCE OF RIGHT ARTIFICIAL KNEE JOINT SNOMED Code(s): 9446658741143
[2018-10-16 17:20] LABS: Glucose,Whole Blood 156 mg/dL (75-99)
[2018-10-16 20:11] LABS: Glucose,Whole Blood 152 mg/dL (75-99)
[2018-10-16] MEDS: SENNOSIDES-DOCUSATE SODIUM 1 EACH TAB PO SCH (20:32)
[2018-10-17] MEDS: LACTATED RINGERS 1,000 ML IV SCH ×2 (02:12→12:35)
[2018-10-17] MEDS: HYDROcodone/APAP 5-325MG 1 EACH TAB PO PRN ×2 (03:20→10:23)
[2018-10-17 07:09] LABS: Glucose,Whole Blood 134 mg/dL (75-99)
[2018-10-17] MEDS: INSULIN ASPART (NovoLOG) 100 UNIT/ML VIAL SQ SCH ×2 (07:54→13:15)
[2018-10-17 08:20] LABS: Basophils % (A) 1 %; Eosinophils # (A) 0.3 k/uL (0-0.7); Eosinophils % (A) 4 %; HCT 32.4 % (34.0-46.0); HGB 10.5 gm/dL (11.4-16.0); Lymphocytes # (A) 1.7 k/uL (1.0-4.8); Lymphocytes % (A) 24 %; MCH 27.1 pg (25.0-35.0); MCHC 32.5 g/dL (31.0-37.0); MCV 83.4 fL (80.0-100.0); Mean Platelet Volume 7.4; Monocytes # (A) 0.7 k/uL (0-1.0); Monocytes % (A) 9 %; Neutrophils # (A) 4.4 k/uL (1.3-7.7); Neutrophils % (A) 60 %; Platelet Count 242 k/uL (150-450); RBC 3.89 m/uL (3.80-5.40); RDW 14.3 % (11.5-15.5); WBC 7.4 k/uL (3.8-10.6)
[2018-10-17 08:22] LABS: ALT 19 U/L (9-52); AST 20 U/L (14-36); Albumin 3.5 g/dL (3.5-5.0); Alkaline Phosphatase 49 U/L (38-126); Anion Gap 7 mmol/L; Blood Urea Nitrogen 10 mg/dL (7-17); Calcium 8.9 mg/dL (8.4-10.2); Carbon Dioxide 31 mmol/L (22-30); Chloride 97 mmol/L (98-107); Glucose 126 mg/dL (74-99); Potassium 4.5 mmol/L (3.5-5.1); Sodium 135 mmol/L (137-145); Total Bilirubin 0.7 mg/dL (0.2-1.3)
[2018-10-17 08:46] VITALS: BP 140/76; PULSE 89; RESP 15; TEMP 98
[2018-10-17] MEDS ORDERED: ATENOLOL 50 MG TAB PO SCH (09:00)
[2018-10-17] MEDS ORDERED: NON-FORMULARY DRUG (Atenolol/Chlorthalidone [Atenolol-Chlorthalidone 50-25] 1 TAB) PO SCH (09:00)
[2018-10-17] MEDS ORDERED: ATORVASTATIN 10 MG TAB PO SCH (09:00)
[2018-10-17] MEDS ORDERED: LISINOPRIL 20 MG TAB PO SCH (09:00)
[2018-10-17] MEDS ORDERED: CHLORTHALIDONE 25 MG TAB PO SCH (09:00)
[2018-10-17] MEDS: LORATADINE 10 MG TAB PO SCH (10:24)
[2018-10-17] MEDS: ASPIRIN 325 MG TAB PO SCH (10:24)
[2018-10-17] MEDS: metFORMIN 500 MG TAB PO SCH (10:25)
[2018-10-17 12:09] LABS: Glucose,Whole Blood 146 mg/dL (75-99)
--- NOTE | 2018-10-17 12:27 | P.DS ---
Providers Date of admission: 10/14/18 12:51 Expected date of discharge: 10/17/18 Attending physician: Oscar Edwards Consults: 10/14/18 12:46 Consult Physician Routine Consulting Provider: Eneida Rausch Consult Reason/Comments: post op medical management Do you want consulting provider notified?: Yes Primary care physician: [facility] Course: This is a 67-year-old female who was last seen in our office for evaluation regarding left knee pain. She has a history of degenerative arthritis of the left knee and presents to discuss surgical options. After discussion and consideration patient next proceed with left total knee arthroplasty. The patient underwent a left total knee arthroplasty on 10/14/[address] Edwards. Patient is admitted to [facility] for total left knee arthroplasty. Procedure is performed without complication or sequelae. The patient is doing well postoperative. Vital signs and labs are stable on postoperative day #3. At the time of my examination, the patient states she overall feels well. She states her pain is well controlled currently. She is ambulating well with the walker and the assistance of physical therapy. She states she has had bowel movements since surgery and is having no issues with urination. She is tolerating her diet well. Patient denies chest pain, shortness of breath, nausea, vomiting, numbness or tingling of the left lower extremity. On inspection of the left knee, there is a clean, dry, intact dressing in place with no bleeding or drainage. Dressing is taken down and reveals a healing incision with no surrounding erythema or warmth; there are no signs of infection. No active drainage or bleeding. The left lower extremity is warm and well-perfused with brisk capillary refill of the toes. Dorsalis pedis pulse palpable. Neurovascular is intact of the left lower extremity with motor and sensation intact. Calves are soft and non-tender bilaterally. The patient is transferred to an extended care facility on 10/17/18 pending medical clearance. Please see discharge orders. Please refer to the med rec for accurate list of medications. Patient Condition at Discharge: Fair Plan - Discharge Summary Discharge Rx Participant: No New Discharge Prescriptions: New Aspirin 325 mg PO BID #60 tab Docusate [Colace] 100 mg PO BID #60 capsule HYDROcodone/APAP 7.5-325MG [[place] 7.5-325] 1 - 2 tab PO Q6HR PRN #30 tab PRN Reason: Pain No Action Multivitamins, Thera [Multivitamin (formulary)] 1 tab PO DAILY Lisinopril 40 mg PO DAILY metFORMIN HCL 1,000 mg PO QAM Atenolol/Chlorthalidone [Atenolol-Chlorthalidone 50-25] 1 tab PO DAILY Aspirin EC [Ecotrin Low Dose] 81 mg PO DAILY Cetirizine HCl [Zyrtec] 10 mg PO DAILY metFORMIN HCL 500 mg PO W/SUPPER Atorvastatin [Lipitor] 10 mg PO DAILY Herbal-Lax 1 tab PO Q48H Acetaminophen [Tylenol Extra Strength] 500 mg PO HS Discharge Medication List Lisinopril 40 mg PO DAILY 01/12/15 [History] Multivitamins, Thera [Multivitamin (formulary)] 1 tab PO DAILY 01/12/15 [History] metFORMIN HCL 1,000 mg PO QAM 01/12/15 [History] Atenolol/Chlorthalidone [Atenolol-Chlorthalidone 50-25] 1 tab PO DAILY 07/08/17 [History] Aspirin EC [Ecotrin Low Dose] 81 mg PO DAILY 10/02/17 [History] Cetirizine HCl [Zyrtec] 10 mg PO DAILY 10/02/17 [History] metFORMIN HCL 500 mg PO W/SUPPER 05/20/18 [History] Acetaminophen [Tylenol Extra Strength] 500 mg PO HS 10/07/18 [History] Atorvastatin [Lipitor] 10 mg PO DAILY 10/07/18 [History] Herbal-Lax 1 tab PO Q48H 10/07/18 [History] Aspirin 325 mg PO BID #60 tab 10/15/18 [Rx] Docusate [Colace] 100 mg PO BID #60 capsule 10/15/18 [Rx] HYDROcodone/APAP 7.5-325MG [[place] 7.5-325] 1 - 2 tab PO Q6HR PRN #30 tab 10/15/18 [Rx] Follow up Appointment(s)/Referral(s): Ade Huston MD [Primary Care Provider] - 10/20/18 1:00 pm Oscar Edwards MD [STAFF PHYSICIAN] - 10/26/18 10:00 am Activity/Diet/Wound Care/Special Instructions: Keep wound clean and dry Take meds as directed Follow-up with Dr. Edwards in office Weight bear as tolerated May shower in 3 days if no bleeding Discharge Disposition: TRANSFER TO SNF/ECF
[2018-10-17] MEDS: MULTIVITAMINS, THERA 1 EACH TAB PO SCH (13:15)
== END 2018-10-17 13:13 | DRG 470 ==
LOC: 2ORMAIN 12:51 → 4SSUR 17:58
PROVIDERS: ADMIT Orthopaedic Surgery Sports Medicine; ATTEND Orthopaedic Surgery Sports Medicine
PROC: 0SRD0J9 Replacement of Left Knee Joint with Synthetic Substitute, Cemented, Open Approach (ICD-10-PCS; principal; 2018-10-14 14:45)
DX: M17.12 Unilateral primary osteoarthritis, left knee (principal); M17.0 Bilateral primary osteoarthritis of knee; Z96.651 Presence of right artificial knee joint; I10 Essential (primary) hypertension; E78.5 Hyperlipidemia, unspecified; E11.9 Type 2 diabetes mellitus without complications; F41.9 Anxiety disorder, unspecified; D72.829 Elevated white blood cell count, unspecified; L29.9 Pruritus, unspecified; Z79.899 Other long term (current) drug therapy; Z79.84 Long term (current) use of oral hypoglycemic drugs; Z79.82 Long term (current) use of aspirin; Z86.73 Personal history of transient ischemic attack (TIA), and cerebral infarction without residual deficits; Z86.718 Personal history of other venous thrombosis and embolism; Z98.42 Cataract extraction status, left eye; Z87.891 Personal history of nicotine dependence; Z90.710 Acquired absence of both cervix and uterus; Z90.49 Acquired absence of other specified parts of digestive tract; Z88.1 Allergy status to other antibiotic agents; Z91.040 Latex allergy status; Z88.0 Allergy status to penicillin; Z91.048 Other nonmedicinal substance allergy status; Z80.0 Family history of malignant neoplasm of digestive organs; Z82.5 Family history of asthma and other chronic lower respiratory diseases
CPT/HCPCS: 71046; 80053; 81003; 85025; 87086; 88300

== ENCOUNTER 2018-12-16 08:07 | Emergency (ER) | payer MEDICARE, OTHER ==
[2018-12-16 08:12] VITALS: TEMP 97.8
[2018-12-16] MEDS ORDERED: SODIUM CHLORIDE 0.9% 500 ML 500 ML IV STA (08:30)
[2018-12-16] MEDS ORDERED: FAMOTIDINE 20 MG/2 ML VIAL IV STA (08:30)
[2018-12-16] MEDS ORDERED: DICYCLOMINE 10 MG/ML 2 ML AMP IM STA (08:30)
[2018-12-16] MEDS ORDERED: ONDANSETRON 4 MG/2 ML VIAL IVP STA (08:30)
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
[2018-12-16 09:24] LABS: Basophils # (A) 0.1 k/uL (0-0.2); Basophils % (A) 1 %; Eosinophils # (A) 0.3 k/uL (0-0.7); Eosinophils % (A) 3 %; HCT 40.4 % (34.0-46.0); HGB 13.2 gm/dL (11.4-16.0); Lymphocytes # (A) 2.6 k/uL (1.0-4.8); Lymphocytes % (A) 24 %; MCH 27.2 pg (25.0-35.0); MCHC 32.6 g/dL (31.0-37.0); MCV 83.3 fL (80.0-100.0); Mean Platelet Volume 6.8; Monocytes # (A) 0.6 k/uL (0-1.0); Monocytes % (A) 6 %; Neutrophils % (A) 65 %; Platelet Count 389 k/uL (150-450); RBC 4.85 m/uL (3.80-5.40); RDW 13.5 % (11.5-15.5); WBC 10.9 k/uL (3.8-10.6)
[2018-12-16 09:27] LABS: Appearance,Urine Clear (Clear); Bilirubin,Urine Negative (Negative); Blood,Urine Negative (Negative); Color,Urine Yellow; Glucose,Urine (UA) Negative (Negative); Ketones,Urine Negative (Negative); Leukocyte Esterase,Urine Negative (Negative); Nitrite,Urine Negative (Negative); Protein,Urine Negative (Negative); Specific Gravity,Urine 1.009 (1.001-1.035); Urobilinogen,Urine <2.0 mg/dL (<2.0)
[2018-12-16 09:33] LABS: ALT 14 U/L (9-52); AST 23 U/L (14-36); African American GFR (CKD) >90 (>60 ml/min/1.73 sqM); Albumin 4.5 g/dL (3.5-5.0); Alkaline Phosphatase 51 U/L (38-126); Amylase 63 U/L (30-110); Anion Gap 13 mmol/L; Blood Urea Nitrogen 10 mg/dL (7-17); Carbon Dioxide 26 mmol/L (22-30); Chloride 96 mmol/L (98-107); Creatine Kinase 33 U/L (30-135); Non-African American GFR(CKD) >90 (>60 ml/min/1.73 sqM); Potassium 4.3 mmol/L (3.5-5.1); Sodium 135 mmol/L (137-145); Total Protein 7.6 g/dL (6.3-8.2)
[2018-12-16 09:34] LABS: Calcium 9.9 mg/dL (8.4-10.2); Glucose 150 mg/dL (74-99); Total Bilirubin 0.5 mg/dL (0.2-1.3)
[2018-12-16 09:35] LABS: INR 0.9 (<1.2); Partial Thromboplastin Time 25.2 sec (22.0-30.0)
--- NOTE | 2018-12-16 10:12 | CT ---
EXAMINATION TYPE: CT abdomen pelvis w con DATE OF EXAM: 12/16/2018 COMPARISON: NONE HISTORY: 68-year-old female LUQ pain TECHNIQUE: Contiguous axial scanning of the abdomen and pelvis following administration of 100 ml Iso alejandra 300 IV contrast. Delayed images through the kidneys and coronal/sagittal reconstructions perform ed. CT DLP: 783.6 mGycm Automated exposure control for dose reduction was used. FINDINGS: Heart normal size without pericardial effusion. Strandy atelectasis lower lungs without pleural effus ion. Liver upper limits of normal in size at 17.4 cm. 1 cm cyst right hepatic dome. Additional subcentimet er hypodensity left liver lobe does not record CT characterization, likely cyst. Gallbladder shows numerous layering calculi. No surrounding inflammation or wall thickening. No biliary ductal dilatation. Portal venous system is patent. Some focal mucosal hyperemia along the distal gastric antrum/pylorus may be a consequence of the phas e of contrast. Large 5.7 cm cyst lateral cortex of the right kidney. Tiny 9 mm cortical cyst left kidney. Spleen and pancreas appear within normal limits. Pancreas mildly atrophic. No dilated small bowel, free fluid, or free air. No mesenteric or retroperitoneal lymphadenopathy. Scattered mild stool. Diverticula along the midsigmoid. No pericolonic inflammatory change. Bladder partially distended. Uterus surgically absent. Multiple pelvic phleboliths. Suspect visualiza tion of a small right ovary. Left ovary not clearly seen. No abnormal fluid collection in the pelvis or pelvic lymphadenopathy. Bones: Degenerative changes at the hips. Rightward tracheal shift may be positional. Hypertrophic fac et arthropathy with grade 1 anterolisthesis at L4-L5. Baastrup's disease. IMPRESSION: 1. MILD MUCOSAL HYPEREMIA ALONG THE DISTAL GASTRIC ANTRUM/PYLORUS MAY BE DUE TO CONTRAST TIMING. SALTY ELATE FOR ANY POTENTIAL SYMPTOMS OF LOCALIZED GASTRITIS OR PEPTIC ULCER DISEASE. OTHERWISE, NO ACUTE INFLAMMATORY PROCESS IDENTIFIED IN THE ABDOMEN OR PELVIS TO EXPLAIN THE PATIENT'S SYMPTOMS. 2. A 5.7 CM LATERAL RIGHT RENAL CYST. 3. SOLITARY DIVERTICULA ALONG THE MIDSIGMOID. NO EVIDENCE FOR ACUTE DIVERTICULITIS. 4. CHOLELITHIASIS.
[2018-12-16] MEDS ORDERED: MAG HYDROX/AL HYDROX/SIMETH 30 ML, HYOSCYAMINE ELIXIR 10 ML, CIMETIDINE HCL 300 MG, LID... PO STA ×4 (10:54)
[2018-12-16 11:44] VITALS: BP 145/81; PULSE 90; RESP 20
== END 2018-12-16 13:02 | disposition home or self-care (01) ==
LOC: EC 08:07
DX: R10.13 Epigastric pain (principal); R11.2 Nausea with vomiting, unspecified; E11.9 Type 2 diabetes mellitus without complications; E78.5 Hyperlipidemia, unspecified; I10 Essential (primary) hypertension; Z87.891 Personal history of nicotine dependence; Z88.0 Allergy status to penicillin; Z88.1 Allergy status to other antibiotic agents; Z88.3 Allergy status to other anti-infective agents; Z91.040 Latex allergy status; Z79.84 Long term (current) use of oral hypoglycemic drugs; Z79.899 Other long term (current) drug therapy; Z79.891 Long term (current) use of opiate analgesic; Z86.718 Personal history of other venous thrombosis and embolism; Z96.651 Presence of right artificial knee joint; Z90.49 Acquired absence of other specified parts of digestive tract; Z86.73 Personal history of transient ischemic attack (TIA), and cerebral infarction without residual deficits; Z87.19 Personal history of other diseases of the digestive system; Z87.39 Personal history of other diseases of the musculoskeletal system and connective tissue; Z80.0 Family history of malignant neoplasm of digestive organs; Z53.29 Procedure and treatment not carried out because of patient's decision for other reasons
CPT/HCPCS: 36415; 93005; 80053; 82150; 82550; 83690; 84484; 85025; 85610; 85730; 81003; 74177; 99284; 96374; 96375; 96361; 96372; J0500; J2405; Q9967

== ENCOUNTER → 2019-03-26 | Outpatient (CLI) | payer MEDICARE, OTHER ==
--- NOTE | 2019-03-26 14:31 | BD ---
EXAMINATION TYPE: Axial Bone Density DATE OF EXAM: 03/26/2019 COMPARISON: NONE CLINICAL HISTORY: M [age] Height: 4 FT 10 1/2 IN Weight: 162 FRAX RISK QUESTIONS: History of Fracture in Adulthood: YES Secondary Osteoporosis: 3. Menopause before 45: PART AGE 31 NEVER HAD SYMPTOMS RISK FACTORS HISTORY OF: History of Wrist Fracture: LEFT WRIST When: APPROX 20 YEARS AGO Active: YES Postmenopausal woman: PART AGE 31 NO SYMPTOMS OF MENOPAUSE MEDICATIONS: Additional Medications: METFORMIN, BLOOD PRESSURE MEDS X 2 , CHOLESTEROL MEDS, ASPIRIN, VITAMINS Additional History: NII KNEE REPLACEMENT EXAM MEASUREMENTS: Bone mineral densitometry was performed using the gamesGR[employer] System. Bone mineral density as measured about the Lumbar spine is: ----- L1-L4(G/cm2): 0.867 T Score Values are as follows: ----- L2: -2.8 ----- L3: -2.5 ----- L4: -2.6 ----- L1-L4: -2.6 BASELINE Bone mineral density about the R hip (g/cm2): 0.788 Bone mineral density about the L hip (g/cm2): 0.702 T Score values are as follows: -----R Neck: -1.8 -----L Neck: -2.4 -----R Total: -1.7 -----L Total: -2.0 BASELINE IMPRESSION: Osteoporosis (T Score less than -2.5). There is increased fracture risk and therapy is usually indicated based on age. Re-Screen 1-2 years. NOTE: T-SCORE=SD OF THE YOUNG ADULT MEAN.
--- NOTE | 2019-03-29 11:55 | MM ---
Reason for exam: screening (asymptomatic). Last mammogram was performed 1 year and 1 month ago. History: Patient is postmenopausal. Family history of breast cancer in aunt. Physical Findings: A clinical breast exam by your physician is recommended on an annual basis and results should be correlated with mammographic findings. MG 3D Screening Mammo W/Cad Bilateral CC and MLO view(s) were taken. Prior study comparison: February 26, 2018, bilateral MG screening mammo w CAD. September 05, 2016, bilateral MG screening mammo w CAD. The breast tissue is almost entirely fat. There is no discrete abnormality. No significant changes when compared with prior studies. ASSESSMENT: Negative, BI-RAD 1 RECOMMENDATION: Routine screening mammogram of both breasts in 1 year.
== END | disposition home or self-care (01) ==
LOC: RADMAMWWP 11:46
PROVIDERS: ATTEND Family Medicine
DX: Z12.31 Encounter for screening mammogram for malignant neoplasm of breast (principal); M81.0 Age-related osteoporosis without current pathological fracture
CPT/HCPCS: 77063; 77067; 77080

== ENCOUNTER → 2019-06-07 | Outpatient (CLI) | payer MEDICARE, OTHER ==
[~2019-06-07] MED LIST changes: -MELOXICAM 7.5 MG TAB PO ONE; -ROPIVACAINE 246.25 MG, EPINEPHrine 0.5 MG, KETOROLAC 30 MG, WATER FOR INJECTION,STERILE... MISCELLANE ONE; +SODIUM CHLORIDE 0.9% 500 ML 500 ML in EMPTY BAG 1 BAG IV PRN; -TRANEXAMIC ACID 1,000 MG in SODIUM CHLORIDE 0.9% 100 ML IVPB ONE; +ZOLEDRONIC ACID 5 MG in SODIUM CHLORIDE 0.9% 100 ML IV ONE; -ceFAZolin IN SWFI 2 GM/20 ML SYRINGE IVP ONE
[2019-06-07 14:39] VITALS: BP 159/85; PULSE 73; RESP 16; TEMP 97.5
== END | disposition home or self-care (01) ==
LOC: PROCWHC3 14:24
PROVIDERS: ATTEND Family Medicine
DX: M81.0 Age-related osteoporosis without current pathological fracture (principal)
CPT/HCPCS: 96365; J3489

== ENCOUNTER 2019-08-13 04:11 | Emergency (ER) | payer MEDICARE, OTHER ==
[2019-08-13 04:20] VITALS: TEMP 98
[2019-08-13 04:32] LABS: Appearance,Urine Turbid (Clear); Bilirubin,Urine Negative (Negative); Blood,Urine Large (Negative); Color,Urine Dark Red; Glucose,Urine (UA) Negative (Negative); Ketones,Urine Negative (Negative); Leukocyte Esterase,Urine Large (Negative); Nitrite,Urine Negative (Negative); Protein,Urine 2+ (Negative); RBC,Urine >182 /hpf (0-5); Urobilinogen,Urine <2.0 mg/dL (<2.0); WBC,Urine >182 /hpf (0-5)
[2019-08-13] MEDS ORDERED: PHENAZOPYRIDINE 200 MG TAB PO STA (04:37)
[2019-08-13] MEDS ORDERED: NITROFURANTOIN MONOHYD/M-CRYST 100 MG CAP PO STA (04:38)
[2019-08-13 04:43] LABS: Specific Gravity,Urine 1.015 (1.001-1.035)
[2019-08-13 05:34] LABS: Basophils % (A) 0 %; Eosinophils # (A) 0.2 k/uL (0-0.7); Eosinophils % (A) 1 %; Lymphocytes # (A) 1.6 k/uL (1.0-4.8); Lymphocytes % (A) 9 %; MCH 27.8 pg (25.0-35.0); MCHC 34.3 g/dL (31.0-37.0); MCV 81.1 fL (80.0-100.0); Mean Platelet Volume 7.1; Monocytes # (A) 0.9 k/uL (0-1.0); Monocytes % (A) 5 %; Neutrophils # (A) 14.1 k/uL (1.3-7.7); Neutrophils % (A) 83 %; Platelet Count 316 k/uL (150-450); RBC 4.69 m/uL (3.80-5.40); RDW 13.5 % (11.5-15.5)
[2019-08-13 05:44] LABS: African American GFR (CKD) >90 (>60 ml/min/1.73 sqM); Anion Gap 10 mmol/L; Blood Urea Nitrogen 16 mg/dL (7-17); Calcium 8.8 mg/dL (8.4-10.2); Carbon Dioxide 25 mmol/L (22-30); Chloride 90 mmol/L (98-107); Glucose 141 mg/dL (74-99); Non-African American GFR(CKD) >90 (>60 ml/min/1.73 sqM); Potassium 3.9 mmol/L (3.5-5.1); Sodium 125 mmol/L (137-145)
[2019-08-13] MEDS ORDERED: MORPHINE SULFATE 4 MG/ML SYRINGE IV STA (05:50)
[2019-08-13] MEDS ORDERED: SODIUM CHLORIDE 0.9% 1,000 ML IV ONE (05:51)
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
[2019-08-13 07:28] VITALS: BP 134/58; PULSE 72; RESP 18
== END 2019-08-13 07:28 | disposition home or self-care (01) ==
LOC: EC 04:11
DX: N39.0 Urinary tract infection, site not specified (principal); E87.1 Hypo-osmolality and hyponatremia; E11.9 Type 2 diabetes mellitus without complications; E78.5 Hyperlipidemia, unspecified; I10 Essential (primary) hypertension; Z91.040 Latex allergy status; Z79.84 Long term (current) use of oral hypoglycemic drugs; Z79.899 Other long term (current) drug therapy; Z88.0 Allergy status to penicillin; Z88.1 Allergy status to other antibiotic agents; Z86.73 Personal history of transient ischemic attack (TIA), and cerebral infarction without residual deficits; Z86.718 Personal history of other venous thrombosis and embolism; Z95.5 Presence of coronary angioplasty implant and graft; Z96.651 Presence of right artificial knee joint
CPT/HCPCS: 36415; 80048; 85025; 81001; 87086; 87077; 87186; 99284; 96365; 96361; 96375; J2270; J0696

== ENCOUNTER → 2020-05-23 | Outpatient (CLI) | payer MEDICARE, OTHER | END | disposition home or self-care (01) | LOC: LABWHC1 12:50 | PROVIDERS: ATTEND Family Medicine | DX: Z20.828 Contact with and (suspected) exposure to other viral communicable diseases (principal) | CPT/HCPCS: U0003; C9803 ==

== ENCOUNTER → 2020-11-30 | Outpatient (CLI) | payer MEDICARE ==
[~2020-11-30] MED LIST changes: +ZOLEDRONIC ACID 5 MG in SODIUM CHLORIDE 0.9% 100 ML IV NR; -ZOLEDRONIC ACID 5 MG in SODIUM CHLORIDE 0.9% 100 ML IV ONE
[2020-11-30 13:49] VITALS: BP 137/80; PULSE 103; RESP 16; TEMP 97.9
== END ==
LOC: PROCWHC3 13:17
PROVIDERS: ATTEND Family Medicine
DX: M81.0 Age-related osteoporosis without current pathological fracture (principal); Z91.040 Latex allergy status; Z88.1 Allergy status to other antibiotic agents; Z88.0 Allergy status to penicillin
CPT/HCPCS: 96365; J3489

== ENCOUNTER 2020-12-26 08:05 | Emergency (ER) | payer MEDICARE ==
[2020-12-26 08:16] VITALS: RESP 18; TEMP 98
[2020-12-26] MEDS ORDERED: SODIUM CHLORIDE 0.9% 1,000 ML IV STA (08:57)
[2020-12-26] MEDS ORDERED: ONDANSETRON 4 MG/2 ML VIAL IVP STA (08:58)
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
[2020-12-26 09:24] LABS: Basophils # (A) 0.1 k/uL (0-0.2); Basophils % (A) 1 %; Eosinophils # (A) 0.2 k/uL (0-0.7); Eosinophils % (A) 2 %; HCT 40.6 % (34.0-46.0); HGB 13.7 gm/dL (11.4-16.0); Lymphocytes # (A) 2.9 k/uL (1.0-4.8); Lymphocytes % (A) 29 %; MCH 28.1 pg (25.0-35.0); MCHC 33.8 g/dL (31.0-37.0); Mean Platelet Volume 7.9; Monocytes # (A) 0.5 k/uL (0-1.0); Monocytes % (A) 5 %; Neutrophils # (A) 6.3 k/uL (1.3-7.7); Neutrophils % (A) 63 %; Platelet Count 343 k/uL (150-450); RBC 4.89 m/uL (3.80-5.40)
[2020-12-26 09:27] LABS: Appearance,Urine Clear (Clear); Bilirubin,Urine Negative (Negative); Blood,Urine Negative (Negative); Color,Urine Yellow; Glucose,Urine (UA) Negative (Negative); Ketones,Urine Negative (Negative); Leukocyte Esterase,Urine Negative (Negative); Nitrite,Urine Negative (Negative); Protein,Urine Negative (Negative); Specific Gravity,Urine 1.016 (1.001-1.035); Urobilinogen,Urine <2.0 mg/dL (<2.0)
[2020-12-26 09:34] LABS: Partial Thromboplastin Time 24.7 sec (22.0-30.0); Prothrombin Time 10.3 sec (9.0-12.0)
[2020-12-26 09:44] LABS: Albumin 4.4 g/dL (3.5-5.0); Calcium 9.5 mg/dL (8.4-10.2); Magnesium 1.6 mg/dL (1.6-2.3); Potassium 3.9 mmol/L (3.5-5.1); Total Bilirubin 0.6 mg/dL (0.2-1.3); Total Protein 7.4 g/dL (6.3-8.2)
[2020-12-26 10:48] VITALS: BP 142/63; PULSE 63
== END 2020-12-26 10:48 | disposition home or self-care (01) ==
LOC: EC 08:05
DX: R11.2 Nausea with vomiting, unspecified (principal); E86.0 Dehydration; R19.7 Diarrhea, unspecified; F41.9 Anxiety disorder, unspecified; E78.5 Hyperlipidemia, unspecified; E11.9 Type 2 diabetes mellitus without complications; I10 Essential (primary) hypertension; Z79.84 Long term (current) use of oral hypoglycemic drugs; Z79.82 Long term (current) use of aspirin; Z88.0 Allergy status to penicillin; Z91.040 Latex allergy status; Z88.1 Allergy status to other antibiotic agents; Z86.718 Personal history of other venous thrombosis and embolism; Z90.49 Acquired absence of other specified parts of digestive tract; Z90.710 Acquired absence of both cervix and uterus; Z96.651 Presence of right artificial knee joint; Z87.891 Personal history of nicotine dependence
CPT/HCPCS: 36415; 80053; 81003; 83605; 83735; 84484; 85025; 85610; 85730; 93005; 96361; 96374; 99284

== ENCOUNTER → 2021-03-27 | Outpatient (CLI) | payer MEDICARE ==
--- NOTE | 2021-03-27 11:24 | BD ---
EXAMINATION TYPE: Axial Bone Density DATE OF EXAM: 03/27/2021 COMPARISON: 03.26.2019 DEXA bone scan. CLINICAL HISTORY: 70 YR OLD FEMALE....ICD-10 CODE: Z78.0 MENOPAUSAL Height: 58.5 Weight: 170 FRAX RISK QUESTIONS: History of Fracture in Adulthood: YES Secondary Osteoporosis: YES 3. Menopause before 45: YES RISK FACTORS HISTORY OF: YES, WRIST History of Wrist Fracture: YES, UNSURE WHICH Postmenopausal woman: YES, AT ABOUT AGE 30 TOTAL HYST Hyperparathyroidism: NO Adrenal Insufficiency: NO MEDICATIONS: Additional Medications: BP MEDS, METFORMIN, STATIN FOR CHOLESTEROL, MULTIVITAMIN Additional History: BILAT TKR, EXAM MEASUREMENTS: Bone mineral densitometry was performed using the [employer] System. Bone mineral density as measured about the Lumbar spine is: ----- L1-L4(G/cm2): 0.890 T Score Values are as follows: ----- L1: -2.1 ----- L2: -2.6 ----- L3: -3.0 ----- L4: -2.2 ----- L1-L4: -2.4 Bone mineral density has: Increased 0.7% since study of: 03.26.2019 Bone mineral density about the R hip (g/cm2): 0.810 Bone mineral density about the L hip (g/cm2): 0.801 T Score values are as follows: -----R Neck: -1.9 -----L Neck: -2.0 -----R Total: -1.6 -----L Total: -1.6 Bone mineral density has: Increased 3.7% since study of: 03.26.2019 FRAX%s: THERE IS A 18.0% CHANCE FOR A MAJOR OSTEOPOROTIC FX AND A 3.5% FOR HIP..... PROBABILITY FO R FX IN 10 YRS TIME IMPRESSION: Osteopenia (T Score between -2.5 and -1) is now present. Bone density improved or is increased from p rior. There is slightly increased risk of fracture and the patient may be considered for treatment. Re-Screen 2-5 years. NOTE: T-SCORE=SD OF THE YOUNG ADULT MEAN.
--- NOTE | 2021-03-29 09:15 | MM ---
Reason for exam: screening (asymptomatic). Last mammogram was performed 2 years ago. History: Patient is postmenopausal. Family history of breast cancer in aunt. Physical Findings: A clinical breast exam by your physician is recommended on an annual basis and results should be correlated with mammographic findings. MG Screening Mammo w CAD Bilateral CC and MLO view(s) were taken. Prior study comparison: March 26, 2019, bilateral MG 3d screening mammo w/cad. February 26, 2018, bilateral MG screening mammo w CAD. September 05, 2016, bilateral MG screening mammo w CAD. The breast tissue is almost entirely fat. No significant changes when compared with prior studies. ASSESSMENT: Benign, BI-RAD 2 RECOMMENDATION: Routine screening mammogram of both breasts in 1 year.
== END | disposition home or self-care (01) ==
LOC: RADMAMWWP 09:59
PROVIDERS: ATTEND Family Medicine
DX: Z12.31 Encounter for screening mammogram for malignant neoplasm of breast (principal); Z78.0 Asymptomatic menopausal state
CPT/HCPCS: 77067; 77080

== ENCOUNTER 2022-03-29 06:30 | Day surgery (SDC) | payer MEDICARE ==
[2022-03-27 17:25] VITALS: BMI 34.1
[~2022-03-29 06:30] MED LIST changes: +LACTATED RINGERS 1,000 ML IV SCH; -SODIUM CHLORIDE 0.9% 500 ML 500 ML in EMPTY BAG 1 BAG IV PRN; -ZOLEDRONIC ACID 5 MG in SODIUM CHLORIDE 0.9% 100 ML IV NR
[2022-03-29 07:11] LABS: Glucose,Whole Blood 155 mg/dL (70-110)
[2022-03-29 07:16] VITALS: TEMP 97.5
[2022-03-29] MEDS ORDERED: LACTATED RINGERS 1,000 ML IV ONE (07:16)
[2022-03-29] MEDS ORDERED: PROPOFOL 10 MG/ML 20 ML VIAL IV ONE (07:44)
--- NOTE | 2022-03-29 08:00 | P.PCN ---
Date of Procedure: 03/29/22 Procedure(s) Performed: BRIEF HISTORY: Patient is a 71-year-old pleasant white female scheduled for an elective colonoscopy as a part of evaluation of prior history of colon polyps. PROCEDURE PERFORMED: Colonoscopy with biopsy. PREOPERATIVE DIAGNOSIS: History of colon polyps. IV sedation per Anesthesia. PROCEDURE: After informed consent was obtained, the patient, was brought into the endoscopy unit. IV sedation was administered by Anesthesia under continuous monitoring. Digital rectal examination was normal. Initially the Olympus CF-160 flexible video colonoscope was then inserted in the rectum, gradually advanced into the cecum without any difficulty. Careful examination was performed as the scope was gradually being withdrawn. Ileocecal valve and the appendiceal orifice were visualized and appeared normal. Prep was excellent. Mucosa of the cecum, a 3-4 mm sessile polyp removed by cold biopsy. Rest of the ascending colon, transverse colon, descending colon, sigmoid colon, and rectum appeared normal. Moderate sigmoid diverticulosis. Retroflexion was performed in the rectum and grade 2 internal hemorrhoids were seen. The patient tolerated the procedure well. IMPRESSION: 3-4 mm sessile cecal polyp status post cold biopsy Scattered sigmoid diverticulosis Grade 2 internal hemorrhoids RECOMMENDATIONS: Findings of this examination were discussed with the patient as well as her family. She was advised to follow with the biopsy results. If the biopsy reveals adenoma she can have a repeat colonoscopy in 5 years..
[2022-03-29 08:09] VITALS: PULSE 69; RESP 16
[2022-03-29 08:19] VITALS: BP 184/74
== END 2022-03-29 09:00 | disposition home or self-care (01) ==
LOC: ORWHC2ENDO 06:30
PROVIDERS: ATTEND Internal Medicine Gastroenterology
DX: Z12.11 Encounter for screening for malignant neoplasm of colon (principal); K57.30 Diverticulosis of large intestine without perforation or abscess without bleeding; K64.1 Second degree hemorrhoids; I10 Essential (primary) hypertension; Z86.010 Personal history of colon polyps; Z88.0 Allergy status to penicillin; Z79.899 Other long term (current) drug therapy; E78.5 Hyperlipidemia, unspecified; E11.9 Type 2 diabetes mellitus without complications
CPT/HCPCS: 88305; 45380; J2704

== ENCOUNTER 2022-03-29 21:29 | Emergency (ER) | payer MEDICARE ==
[2022-03-29 22:13] VITALS: RESP 16
[2022-03-29] MEDS ORDERED: SODIUM CHLORIDE 0.9% 1,000 ML IV STA (22:34)
[2022-03-29] MEDS ORDERED: ONDANSETRON 4 MG/2 ML VIAL IVP STA (22:34)
[2022-03-29 22:57] LABS: Basophils # (A) 0.1 k/uL (0-0.2); Basophils % (A) 0 %; Eosinophils # (A) 0.1 k/uL (0-0.7); Eosinophils % (A) 1 %; HCT 40.4 % (34.0-46.0); Lymphocytes # (A) 2.5 k/uL (1.0-4.8); Lymphocytes % (A) 19 %; MCH 27.6 pg (25.0-35.0); MCHC 34.5 g/dL (31.0-37.0); Mean Platelet Volume 8.3; Monocytes # (A) 0.7 k/uL (0-1.0); Monocytes % (A) 5 %; Neutrophils # (A) 9.5 k/uL (1.3-7.7); Neutrophils % (A) 73 %; Platelet Count 334 k/uL (150-450); RBC 5.06 m/uL (3.80-5.40); RDW 13.2 % (11.5-15.5); WBC 12.9 k/uL (3.8-10.6)
[2022-03-29 23:20] LABS: ALT 34 U/L (4-34); AST 34 U/L (14-36); African American GFR (CKD) >90 (>60 ml/min/1.73 sqM); Albumin 4.6 g/dL (3.5-5.0); Alkaline Phosphatase 74 U/L (38-126); Amylase 46 U/L (30-110); Anion Gap 14 mmol/L; Blood Urea Nitrogen 9 mg/dL (7-17); Calcium 9.6 mg/dL (8.4-10.2); Carbon Dioxide 24 mmol/L (22-30); Chloride 91 mmol/L (98-107); Glucose 187 mg/dL (74-99); Lipase 178 U/L (23-300); Non-African American GFR(CKD) 82 (>60 ml/min/1.73 sqM); Potassium 3.2 mmol/L (3.5-5.1); Sodium 129 mmol/L (137-145); Total Bilirubin 0.7 mg/dL (0.2-1.3); Total Protein 7.3 g/dL (6.3-8.2)
[2022-03-30] MEDS ORDERED: MORPHINE SULFATE 4 MG/ML SYRINGE IVP STA (00:41)
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
--- NOTE | 2022-03-30 02:44 | CT ---
EXAMINATION TYPE: CT abdomen pelvis w con DATE OF EXAM: 03/30/2022 COMPARISON: 12/16/2018 HISTORY: N/V/PAIN ALL OVER S/P COLONOSCOPY CT DLP: 944.2 mGycm Automated exposure control for dose reduction was used. CONTRAST: Performed with IV Contrast, patient injected with 100 mL of Isovue 300. Images obtained from the diaphragm to the floor of the pelvis with the IV contrast. The lung bases show minimal subsegmental atelectasis. Heart size is normal. No pericardial effusion. There is a 2 cm cyst in the superior right lobe of the liver. There is calcified gallstones. Spleen i s intact. Stomach is intact. No pancreatic mass. There is no adrenal mass. Kidneys have normal size. There are bilateral renal cortical cysts that will sure up to 6 cm. No retroperitoneal adenopathy. Ureters are not dilated. Bladder distends smoothly. N o inguinal hernia. No free fluid in the pelvis. No pelvic mass. Appendix not seen. No sign of thicken ed appendix. There are phleboliths in the pelvis. No pelvic mass. There is no mesenteric edema. No ascites or free air. No sign of a bowel obstruction. There is a dege nerative mild first-degree L4-5 spondylolisthesis. Lumbar vertebra. Tach. No compression fracture. [place] pelvis is intact. The hip joints are intact. There is no intestinal wall thickening. No dilated loops. IMPRESSION: No acute abnormality of the abdomen pelvis. No free air. Hepatic and renal cysts. Cholelithiasis. No evidence of acute traumatic injury in the abdomen and pelvis. No significant urshing e compared to old exam.
[2022-03-30] MEDS ORDERED: POTASSIUM CHLORIDE ER 20 MEQ TAB.ER PO STA (03:08)
[2022-03-30 03:42] LABS: Appearance,Urine Clear (Clear); Bilirubin,Urine Negative (Negative); Blood,Urine Negative (Negative); Color,Urine Colorless; Glucose,Urine (UA) Negative (Negative); Ketones,Urine 1+ (Negative); Leukocyte Esterase,Urine Negative (Negative); Nitrite,Urine Negative (Negative); PH, Urine 5.5 (5.0-8.0); Protein,Urine Negative (Negative); Specific Gravity,Urine 1.028 (1.001-1.035); Urobilinogen,Urine <2.0 mg/dL (<2.0)
[2022-03-30 04:21] VITALS: BP 138/70; PULSE 72; TEMP 98.4
== END 2022-03-30 04:26 | disposition home or self-care (01) ==
LOC: EC 21:29
DX: R10.84 Generalized abdominal pain (principal); Z86.73 Personal history of transient ischemic attack (TIA), and cerebral infarction without residual deficits; E11.9 Type 2 diabetes mellitus without complications; Z86.718 Personal history of other venous thrombosis and embolism; E78.5 Hyperlipidemia, unspecified; I10 Essential (primary) hypertension; F41.9 Anxiety disorder, unspecified; Z91.040 Latex allergy status; Z88.0 Allergy status to penicillin; Z88.1 Allergy status to other antibiotic agents; Z79.82 Long term (current) use of aspirin; Z79.84 Long term (current) use of oral hypoglycemic drugs; Z79.899 Other long term (current) drug therapy
CPT/HCPCS: 36415; 93005; 80053; 82150; 83690; 85025; 81003; 74177; 99284; 96374; 96375; 96361 ×3; J2270; J2405; Q9967

== ENCOUNTER → 2022-04-17 | Outpatient (CLI) | payer MEDICARE ==
--- NOTE | 2022-04-17 13:02 | MM ---
Reason for Exam: Screening (asymptomatic). Last screening mammogram was performed 12 month(s) ago. Patient History: Menarche at age 11. First Full-Term at age 21. Hysterectomy at age 31. Postmenopausal. Maternal aunt had breast cancer. Risk Values: Martha 5 year model risk: 1.6%. NCI Lifetime model risk: 4.1%. Prior Study Comparison: 02/26/2018 Bilateral Screening Mammogram, [facility]. 03/26/2019 Bilateral Screening Mammogram, [facility]. 03/27/2021 Bilateral Screening Mammogram, [facility]. Tissue Density: There are scattered fibroglandular densities. Findings: Analyzed By CAD. There is no suspicious group of microcalcifications or new suspicious mass in either breast. Overall Assessment: Negative, BI-RAD 1 Management: Screening Mammogram of both breasts in 1 year. A clinical breast exam by your physician is recommended on an annual basis and results should be correlated with mammographic findings. Electronically signed and approved by: Hermelindo Lopez M.D. Radiologis
== END | disposition home or self-care (01) ==
LOC: RADMAMWWP 09:40
PROVIDERS: ATTEND Family Medicine
DX: Z12.31 Encounter for screening mammogram for malignant neoplasm of breast (principal); Z78.0 Asymptomatic menopausal state; Z80.3 Family history of malignant neoplasm of breast
CPT/HCPCS: 77067

== ENCOUNTER 2023-01-03 11:31 | Emergency (ER) | payer MEDICARE ==
[2023-01-03 11:50] VITALS: RESP 18
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
--- NOTE | 2023-01-03 12:50 | CT ---
EXAMINATION TYPE: CT brain abiodun wo con DATE OF EXAM: 01/03/2023 COMPARISON: 03/10/2010 HISTORY: Fall 2 weeks ago, still has bruising to both eyes and FRIEDMAN CT DLP: 1012.1 mGycm, Automated exposure control for dose reduction was used. CONTRAST: None CT of the brain is performed utilizing 3 mm thick sections through the posterior fossa and 3 mm thick sections through the remaining calvarium. Study is performed within 24 hours of arrival to the hospital. No abnormal hyperdensity is present to suggest an acute intracranial hemorrhage. No mass lesion is evident. No acute infarcts are evident. Ventricles and sulci are appropriate for the patient age. Paranasal sinuses and mastoid air cells within the [id number] are clear. IMPRESSIONS: 1. No acute intracranial process. Follow-up can be performed as clinically indicated. CT cervical spine. COMPARISON: None CT of the cervical spine is performed in the axial plane at 2 mm thick sections. Reconstructed image s in the coronal, and sagittal plane are reviewed on the computer. No acute fractures are evident. Vertebral body alignment is normal. Disc heights are preserved. Vertebral body heights are preserved. No spinal canal stenosis is evident. No neural foraminal stenosis is evident. IMPRESSIONS: 1. No acute or subacute osseous abnormality cervical spine.
--- NOTE | 2023-01-03 13:06 | CT ---
EXAMINATION TYPE: CT facial bones wo con DATE OF EXAM: 01/03/2023 COMPARISON: None HISTORY: Fall 2 weeks ago, still has bruising to both eyes and FRIEDMAN CT DLP: 1012.1 mGycm CONTRAST: 0 mL of Isovue 300 The paranasal sinuses are examined in the axial plane at 2 mm thick sections. Reconstructed images i n the coronal plane were obtained. There is dental amalgam scatter artifact. Maxillary spine is intact. Anterior posterior lateral kaur of the maxillary sinuses are intact. Orbital floors are normal. Medial orbital kaur are intact. Saúl al bones are intact. Periorbital soft tissues appear normal. Globes are symmetrical. The maxillary sinuses are clear. The ethmoid air cells are clear. The sphenoid sinuses are clear. The frontal sinuses are clear. The septum is evaluated. There is septal deviation to the left. The ostiomeatal units are patent. IMPRESSIONS: 1. No acute osseous abnormality.
[2023-01-03 13:37] VITALS: BP 152/87; PULSE 71; TEMP 98.4
== END 2023-01-03 14:04 | disposition home or self-care (01) ==
LOC: EC 11:31
DX: S00.83XA Contusion of other part of head, initial encounter (principal); G44.309 Post-traumatic headache, unspecified, not intractable; E11.9 Type 2 diabetes mellitus without complications; I10 Essential (primary) hypertension; Z79.84 Long term (current) use of oral hypoglycemic drugs; Z79.82 Long term (current) use of aspirin; Z79.899 Other long term (current) drug therapy; Z91.040 Latex allergy status; Z88.1 Allergy status to other antibiotic agents; Z88.0 Allergy status to penicillin; W01.0XXA Fall on same level from slipping, tripping and stumbling without subsequent striking against object, initial encounter
CPT/HCPCS: 70450; 70486; 72125; 99284

== ENCOUNTER → 2024-10-26 | Outpatient (CLI) | payer MEDICARE ==
--- NOTE | 2024-10-26 12:34 | MM ---
Reason for Exam: Screening (asymptomatic). Last mammogram was performed 2 year(s) and 7 month(s) ago. Patient History: Menarche at age 11. First Full-Term at age 21. Hysterectomy at age 31. Postmenopausal. Patient has history of breast feeding. Maternal aunt had breast cancer. Risk Values: Martha 5 year model risk: 1.6%. NCI Lifetime model risk: 3.7%. Prior Study Comparison: 03/26/2019 Bilateral Screening Mammogram, [facility]. 03/27/2021 Bilateral Screening Mammogram, [facility]. 04/17/2022 Bilateral MG screening mammo w CAD, [facility]. Tissue Density: The breasts are almost entirely fatty. Findings: Analyzed By CAD. There are a few small scattered benign-appearing round and linear calcifications bilaterally redemonstrated. There is no suspicious group of microcalcifications or new suspicious mass in either breast. Overall Assessment: Benign, BI-RAD 2 Management: Screening Mammogram of both breasts in 1 year. . Patient should continue monthly self-breast exams. A clinical breast exam by your physician is recommended on an annual basis. This exam should not preclude additional follow-up of suspicious palpable abnormalities. Note on Martha scores and lifetime risk: 1. A Martha score greater than 3% is considered moderate risk. If this is the case, consider specialist referral to assess eligibility for a risk reducing agent. 2. If overall lifetime risk for the development of breast cancer is 20% or higher, the patient may qualify for future screening with alternating mammogram and breast MRI. [facility], , 10/26/2024 12:31 PM. Electronically signed and approved by: Juan C Castaneda M.D.
== END | disposition home or self-care (01) ==
LOC: RADMAMWWP 10:45
PROVIDERS: ATTEND Family Medicine
DX: Z12.31 Encounter for screening mammogram for malignant neoplasm of breast (principal); R92.313 Mammographic fatty tissue density, bilateral breasts; R92.1 Mammographic calcification found on diagnostic imaging of breast; Z80.3 Family history of malignant neoplasm of breast; Z78.0 Asymptomatic menopausal state
CPT/HCPCS: 77067